=== PATIENT | male | born 1945 | race Caucasian/White ===

== ENCOUNTER 2021-09-06 10:03 | Outpatient (CLI) | payer MEDICARE ==
[~2021-09-06 10:03] MED LIST: Iopamidol 370 76% 100 ML VIAL ONE
[2021-09-06 10:21] LABS: Estimated GFR-MDRD - POC Greater than 90
== END 2021-09-06 10:04 | disposition home or self-care (01) ==
LOC: BICCT 10:03
PROVIDERS: ATTEND Radiology Radiation Oncology
DX: C61 Malignant neoplasm of prostate (principal); C79.51 Secondary malignant neoplasm of bone; R59.0 Localized enlarged lymph nodes; N20.2 Calculus of kidney with calculus of ureter; N32.89 Other specified disorders of bladder
CPT/HCPCS: 74177; 82565; Q9967

== ENCOUNTER 2021-11-02 13:35 | Outpatient (CLI) | payer MEDICARE | END 2021-11-02 13:36 | disposition home or self-care (01) | LOC: RAD 13:35 | PROVIDERS: ATTEND Urology | DX: N21.0 Calculus in bladder (principal); N20.0 Calculus of kidney; C61 Malignant neoplasm of prostate; C79.51 Secondary malignant neoplasm of bone | CPT/HCPCS: 74018; 80053; 84153 ==

== ENCOUNTER 2022-02-06 13:23 | Outpatient (CLI) | payer MEDICARE ==
[2022-02-06 15:00] LABS: Hemoglobin 13.6 g/dL (13.5-17.5); Mean Corpuscular HGB CONC 32.8 g/dL (32.0-36.0); Mean Corpuscular Hemoglobin 31.3 pg (27.0-33.0); Mean Corpuscular Volume 95.4 fl (81.2-95.1); Mean Platelet Volume 9.9 fl (7.4-10.4); Platelet Count 228 10x3/uL (150-450); RBC Distribution Width 14.5 % (11.5-14.5); Red Blood Cell (RBC) Count 4.35 10x6/uL (4.32-5.72); White Blood Cell (WBC) Count 6.8 10x3/uL (3.5-10.5)
[2022-02-06 15:10] LABS: Anion Gap 13 mmol/L (10-20); BUN (Urea Nitrogen) 21 mg/dL (8.4-25.7); Calc. Creatinine Clearance 0 mL/min (70-130); Carbon Dioxide 26 mmol/L (23-31); Chloride 106 mmol/L (98-107); Glucose 115 mg/dL (83-110); Potassium 3.8 mmol/L (3.5-5.1); Sodium 141 mmol/L (136-145)
[2022-02-06 23:02] LABS: SARS-CoV-2 PCR by NAA Not Detected (NotDetected)
== END 2022-02-06 13:24 | disposition home or self-care (01) ==
LOC: LABBT 13:23
PROVIDERS: ATTEND Urology
DX: Z01.818 Encounter for other preprocedural examination (principal); N32.0 Bladder-neck obstruction; N35.914 Unspecified anterior urethral stricture, male; Z20.822 Contact with and (suspected) exposure to COVID-19
CPT/HCPCS: 80048; 85027; 87077; 87086; 93005; U0003; U0005; 87186; 93010

== ENCOUNTER 2022-02-09 05:44 | Day surgery (SDC) | payer MEDICARE ==
[2022-02-07 13:44] VITALS: BMI 36.1
[2022-02-09] MEDS ORDERED: fentaNYL Citrate/PF 100 MCG/2 ML SYRINGE ONE (07:56)
[2022-02-09] MEDS ORDERED: Famotidine/PF 20 mg/2ml Vial ONE (07:56)
[2022-02-09] MEDS ORDERED: Ondansetron PF 4 MG/2 ML Vial ONE ×2 (07:56→08:08)
[2022-02-09] MEDS ORDERED: Levofloxacin 500 mg/D5W 100 ml Premix Bag ONE (08:01)
[2022-02-09] MEDS ORDERED: Lidocaine 1% PF 5 ML VIAL ONE (08:08)
[2022-02-09] MEDS ORDERED: PROPOFOL 200 MG/20 ML VIAL ONE (08:08)
[2022-02-09] MEDS ORDERED: Metoclopramide HCl 10 MG/2 ML VIAL ONE (08:08)
[2022-02-09] MEDS ORDERED: Ioversol 68 % 50 ML VIAL ONE (08:09)
[2022-02-09] MEDS ORDERED: Triamcinolone 40 MG/ML VIAL ONE (08:09)
[2022-02-09] MEDS ORDERED: Phenazopyridine HCl 100 MG TAB ONE (09:25)
[2022-02-09] MEDS ORDERED: Oxybutynin 5 MG TAB ONE (09:26)
[2022-02-09] MEDS ORDERED: Ketorolac Tromethamine 30 MG/ML VIAL ONE (09:26)
== END 2022-02-09 10:50 | disposition home or self-care (01) ==
LOC: SDC 05:44
PROVIDERS: ATTEND Urology
PROC: 0TND8ZZ Release Urethra, Via Natural or Artificial Opening Endoscopic (ICD-10-PCS; principal; 2022-02-09)
PROC: 0TBC8ZZ Excision of Bladder Neck, Via Natural or Artificial Opening Endoscopic (ICD-10-PCS; 2022-02-09)
PROC: 0T2BX0Z Change Drainage Device in Bladder, External Approach (ICD-10-PCS; 2022-02-09)
DX: N32.0 Bladder-neck obstruction (principal); N35.914 Unspecified anterior urethral stricture, male; I10 Essential (primary) hypertension; E78.5 Hyperlipidemia, unspecified; G47.30 Sleep apnea, unspecified; Q61.3 Polycystic kidney, unspecified; E78.00 Pure hypercholesterolemia, unspecified; E66.9 Obesity, unspecified; Z68.35 Body mass index [BMI] 35.0-35.9, adult; Z85.46 Personal history of malignant neoplasm of prostate; Z86.16 Personal history of COVID-19; Z87.891 Personal history of nicotine dependence; Z79.52 Long term (current) use of systemic steroids; Z79.899 Other long term (current) drug therapy
CPT/HCPCS: 74420; J1885; J1956; J2405; J2704; J2765; J3301; Q9967; S0028

== ENCOUNTER 2022-02-13 13:09 | Inpatient (IN) | payer MEDICARE ==
[2022-02-13] MEDS ORDERED: Ondansetron PF 4 MG/2 ML Vial ONE (13:23)
[2022-02-13 13:42] LABS: #Eosinphils 0.1 thou/uL (0.0-0.7); #Monocytes 0.6 thou/uL (0.11-0.59); #Neutrophils 7.6 thou/uL (1.40-6.50); %Basophils 0.4 % (0.0-1.0); %Lymphocytes 11.1 % (21.0-51.0); %Monocytes 6.2 % (0.0-10.0); %Neutrophils 81.4 % (42.0-75.0); Hemoglobin 14.8 g/dL (14.0-18.0); Mean Corpuscular HGB CONC 34.2 g/dL (32.0-36.0); Mean Corpuscular Hemoglobin 32.4 pg (27.0-31.0); Mean Corpuscular Volume 94.6 fL (78.0-98.0); Mean Platelet Volume 7.5 fL (7.4-10.4); Platelet Count 196 thou/uL (130-400); RBC Distribution Width 13.5 % (11.5-14.5); Red Blood Cell (RBC) Count 4.56 mill/uL (4.70-6.10); White Blood Cell (WBC) Count 9.3 thou/uL (4.8-10.8)
[2022-02-13] MEDS ORDERED: Cefepime 2 GM VIAL ONE (13:51)
[2022-02-13 14:07] LABS: ALT (SGPT) 13 U/L (8-55); AST (SGOT) 14 U/L (5-34); Albumin 3.7 g/dL (3.4-4.8); Alkaline Phosphatase 83 U/L (40-110); Anion Gap 14 mmol/L (10-20); BUN (Urea Nitrogen) 11 mg/dL (8.4-25.7); Bilirubin, Total 1.2 mg/dL (0.2-1.2); CK (CPK) 82 U/L (30-200); Calc. Creatinine Clearance 0 mL/min (70-130); Calcium 8.6 mg/dL (7.8-10.44); Carbon Dioxide 26 mmol/L (23-31); Chloride 98 mmol/L (98-107); Globulin 3.1 g/dL (2.4-3.5); Glucose 137 mg/dL (83-110); Magnesium 2.1 mg/dL (1.6-2.6); Protein, Total 6.8 g/dL (5.8-8.1); Sodium 135 mmol/L (136-145)
[2022-02-13 14:09] LABS: Potassium 2.6 mmol/L (3.5-5.1)
[2022-02-13] MEDS ORDERED: Magnesium 2 GM/50 ML BAG (IN WATER) ONE (14:36)
[2022-02-13] MEDS ORDERED: Vancomycin 1 GM in Premix Bag 1 BAG IVPB SCH (14:45)
[2022-02-13 15:09] LABS: Bacteria/HPF None Seen HPF (None Seen); Bilirubin Negative (Negative); Blood, Urine 1+ (Negative); Calcium Oxalate Crystals Rare HPF (None Seen); Clarity Clear (Clear); Glucose, Urine (Dipstick) Normal (Negative); Ketone, Urine Negative (Negative); Leukocyte 75 Leu/uL (Negative); Nitrite Negative (Negative); Protein, Urine (Dipstick) Negative (Neg-Trace); Specific Gravity, Urine 1.012 (1.002-1.036); Squamous Epithelial None Seen HPF (0-3); Urobilinogen Normal mg/dL (Less than 2)
[2022-02-13] MEDS ORDERED: Diltiazem HCl 125 MG, Admixture Fee 1 EACH in Sodium Chloride 0.9% 100 ML IVPB SCH (15:15)
[2022-02-13] MEDS ORDERED: Loperamide HCl 2 MG CAP PO PRN (16:37)
[2022-02-13] MEDS ORDERED: Calcium Carbonate 500 MG ChewTAB PO PRN (16:37)
[2022-02-13] MEDS ORDERED: Ondansetron PF 4 MG/2 ML Vial IVP PRN (16:37)
[2022-02-13] MEDS ORDERED: Senokot S 8.6-50 MG TAB PO PRN (16:37)
[2022-02-13] MEDS ORDERED: Acetaminophen 325 MG TAB PO PRN (16:37)
[2022-02-13] MEDS ORDERED: HYDROcodone/Acetaminophen 5/325 mg Tablet PO PRN (16:37)
[2022-02-13 17:01] LABS: Troponin I 0.021 ng/mL (< 0.028)
[2022-02-13] MEDS ORDERED: Potassium Chloride 20 MEQ TAB PO SCH (17:15)
[2022-02-13] MEDS: Potassium Chloride 20 MEQ in Premix Bag 1 BAG IVPB SCH ×2 (17:16→17:29)
[2022-02-13 17:26] VITALS: BMI 36.1
[2022-02-13] MEDS: Amiodarone 450 MG in Dextrose 5% in Water 250 ML IVPB SCH (17:29)
[2022-02-13] MEDS: Sodium Chloride 0.9% 1,000 ML IV SCH (17:29)
[2022-02-13] MEDS ORDERED: Vancomycin HCl 2.5 GM in Sodium Chloride 0.9% 500 ML IVPB SCH (18:00)
[2022-02-13] MEDS ORDERED: Digoxin 0.5 MG/2 ML AMP ONE (18:26)
[2022-02-13] MEDS ORDERED: Digoxin 0.5 MG/2 ML AMP SLOW IVP SCH (18:30)
[2022-02-13 20:17] LABS: Troponin I 0.031 ng/mL (< 0.028)
[2022-02-13 20:27] LABS: Anion Gap 11 mmol/L (10-20); BUN (Urea Nitrogen) 9 mg/dL (8.4-25.7); Calc. Creatinine Clearance 143 mL/min (70-130); Calcium 7.3 mg/dL (7.8-10.44); Carbon Dioxide 24 mmol/L (23-31); Chloride 104 mmol/L (98-107); Glucose 121 mg/dL (83-110); Potassium 2.7 mmol/L (3.5-5.1); Sodium 136 mmol/L (136-145)
[2022-02-13] MEDS: Enoxaparin Sodium 120 MG/0.8 ML SYRINGE SC SCH (20:55)
[2022-02-13] MEDS: Famotidine 20 MG TAB PO SCH (20:55)
[2022-02-13] MEDS: Cefepime 2 GM in Sodium Chloride 0.9% 100 ML IVPB SCH (20:56)
[2022-02-13] MEDS ORDERED: Electrolyte Replacement Protocol FS PRN (21:00)
[2022-02-13 23:33] LABS: SARS-CoV-2 NAA Rapid Test Not Detected (NotDetected)
[2022-02-14] MEDS: Amiodarone 450 MG in Dextrose 5% in Water 250 ML IVPB SCH (02:21)
[2022-02-14] MEDS ORDERED: Potassium Chloride 20 MEQ TAB PO SCH ×2 (02:30→09:30)
[2022-02-14 04:21] LABS: #Eosinphils 0.1 thou/uL (0.0-0.7); #Lymphocytes 1.1 thou/uL (1.20-3.40); #Monocytes 0.7 thou/uL (0.11-0.59); #Neutrophils 5.1 thou/uL (1.40-6.50); %Basophils 0.1 % (0.0-1.0); %Eosinophils 1.5 % (0.0-10.0); %Lymphocytes 15.4 % (21.0-51.0); %Monocytes 9.6 % (0.0-10.0); %Neutrophils 73.5 % (42.0-75.0); Hemoglobin 11.9 g/dL (14.0-18.0); Mean Corpuscular HGB CONC 33.4 g/dL (32.0-36.0); Mean Corpuscular Hemoglobin 32.8 pg (27.0-31.0); Mean Corpuscular Volume 98.2 fL (78.0-98.0); Mean Platelet Volume 7.4 fL (7.4-10.4); Platelet Count 164 thou/uL (130-400); RBC Distribution Width 13.6 % (11.5-14.5); Red Blood Cell (RBC) Count 3.63 mill/uL (4.70-6.10); White Blood Cell (WBC) Count 6.9 thou/uL (4.8-10.8)
[2022-02-14 04:31] LABS: Anion Gap 12 mmol/L (10-20); BUN (Urea Nitrogen) 9 mg/dL (8.4-25.7); Calc. Creatinine Clearance 143 mL/min (70-130); Calcium 6.8 mg/dL (7.8-10.44); Carbon Dioxide 20 mmol/L (23-31); Chloride 104 mmol/L (98-107); Glucose 109 mg/dL (83-110); Sodium 133 mmol/L (136-145)
[2022-02-14 04:38] LABS: Potassium 2.7 mmol/L (3.5-5.1)
[2022-02-14] MEDS: Sodium Chloride 0.9% 1,000 ML IV SCH ×3 (05:03→18:37)
[2022-02-14] MEDS: Cefepime 2 GM in Sodium Chloride 0.9% 100 ML IVPB SCH (05:04)
[2022-02-14] MEDS ORDERED: Potassium Chloride 20 MEQ in Premix Bag 1 BAG IVPB SCH (05:45)
[2022-02-14] MEDS ORDERED: Vancomycin HCl 1.75 GM in Sodium Chloride 0.9% 500 ML IVPB SCH (06:00)
[2022-02-14] MEDS: Potassium Chloride 20 MEQ TAB PO SCH ×2 (06:16→09:02)
[2022-02-14 08:11] LABS: Magnesium 2.2 mg/dL (1.6-2.6); Potassium 3.2 mmol/L (3.5-5.1)
[2022-02-14] MEDS: Famotidine 20 MG TAB PO SCH ×2 (09:02→21:40)
[2022-02-14] MEDS: Enoxaparin Sodium 120 MG/0.8 ML SYRINGE SC SCH ×2 (09:02→21:39)
[2022-02-14 14:45] LABS: Anion Gap 12 mmol/L (10-20); BUN (Urea Nitrogen) 11 mg/dL (8.4-25.7); Calc. Creatinine Clearance 132 mL/min (70-130); Calcium 7.1 mg/dL (7.8-10.44); Carbon Dioxide 20 mmol/L (23-31); Chloride 106 mmol/L (98-107); Glucose 157 mg/dL (83-110); Potassium 4.1 mmol/L (3.5-5.1); Sodium 134 mmol/L (136-145)
[2022-02-15] MEDS: Sodium Chloride 0.9% 1,000 ML IV SCH ×2 (01:54→11:12)
[2022-02-15 04:27] LABS: Anion Gap 13 mmol/L (10-20); BUN (Urea Nitrogen) 9 mg/dL (8.4-25.7); Calc. Creatinine Clearance 151 mL/min (70-130); Calcium 6.9 mg/dL (7.8-10.44); Carbon Dioxide 17 mmol/L (23-31); Chloride 108 mmol/L (98-107); Glucose 102 mg/dL (83-110); Potassium 3.6 mmol/L (3.5-5.1); Sodium 134 mmol/L (136-145)
[2022-02-15 04:48] LABS: #Eosinphils 0.2 thou/uL (0.0-0.7); #Lymphocytes 1.3 thou/uL (1.20-3.40); #Monocytes 0.5 thou/uL (0.11-0.59); #Neutrophils 5.6 thou/uL (1.40-6.50); %Basophils 0.1 % (0.0-1.0); %Eosinophils 2.7 % (0.0-10.0); %Lymphocytes 17.5 % (21.0-51.0); %Neutrophils 72.7 % (42.0-75.0); Hemoglobin 11.2 g/dL (14.0-18.0); Mean Corpuscular HGB CONC 33.2 g/dL (32.0-36.0); Mean Corpuscular Volume 96.3 fL (78.0-98.0); Mean Platelet Volume 8.7 fL (7.4-10.4); Platelet Count 140 thou/uL (130-400); RBC Distribution Width 13.6 % (11.5-14.5); RBC Morphology Normal; Red Blood Cell (RBC) Count 3.51 mill/uL (4.70-6.10); White Blood Cell (WBC) Count 7.7 thou/uL (4.8-10.8)
[2022-02-15] MEDS: Famotidine 20 MG TAB PO SCH ×2 (09:31→20:26)
[2022-02-15] MEDS: Enoxaparin Sodium 120 MG/0.8 ML SYRINGE SC SCH ×2 (09:31→20:26)
[2022-02-15] MEDS ORDERED: Furosemide 40 MG/4 ML VIAL SLOW IVP SCH (14:30)
[2022-02-16 04:06] LABS: #Eosinphils 0.1 thou/uL (0.0-0.7); #Lymphocytes 1.6 thou/uL (1.20-3.40); #Monocytes 0.5 thou/uL (0.11-0.59); %Basophils 0.2 % (0.0-1.0); %Eosinophils 1.5 % (0.0-10.0); %Lymphocytes 19.2 % (21.0-51.0); %Monocytes 5.7 % (0.0-10.0); %Neutrophils 73.4 % (42.0-75.0); Hemoglobin 11.8 g/dL (14.0-18.0); Mean Corpuscular HGB CONC 34.4 g/dL (32.0-36.0); Mean Corpuscular Hemoglobin 32.6 pg (27.0-31.0); Mean Corpuscular Volume 94.9 fL (78.0-98.0); Mean Platelet Volume 7.8 fL (7.4-10.4); Platelet Count 202 thou/uL (130-400); RBC Distribution Width 13.6 % (11.5-14.5); Red Blood Cell (RBC) Count 3.61 mill/uL (4.70-6.10); White Blood Cell (WBC) Count 8.2 thou/uL (4.8-10.8)
[2022-02-16 04:29] LABS: Anion Gap 13 mmol/L (10-20); BUN (Urea Nitrogen) 8 mg/dL (8.4-25.7); Calc. Creatinine Clearance 137 mL/min (70-130); Calcium 7.2 mg/dL (7.8-10.44); Carbon Dioxide 23 mmol/L (23-31); Chloride 105 mmol/L (98-107); Glucose 117 mg/dL (83-110); Sodium 138 mmol/L (136-145)
[2022-02-16 04:32] LABS: Potassium 2.7 mmol/L (3.5-5.1)
[2022-02-16] MEDS: Amiodarone 450 MG in Dextrose 5% in Water 250 ML IVPB SCH ×2 (05:25→21:59)
[2022-02-16] MEDS: Furosemide 20 MG/2 ML VIAL SLOW IVP SCH ×2 (05:29→13:56)
[2022-02-16] MEDS ORDERED: Potassium Chloride 40 MEQ in Sodium Chloride 0.9% 250 ML 250 ML IVPB SCH (06:45)
[2022-02-16] MEDS ORDERED: Potassium Chloride 20 MEQ TAB PO SCH ×2 (08:15→18:00)
[2022-02-16] MEDS ORDERED: Potassium Chloride 20 MEQ TAB ONE ×2 (08:39→08:40)
[2022-02-16] MEDS ORDERED: Glycopyrrolate 0.2 MG/ML 5 ML SYRINGE ONE ×2 (08:46→08:50)
[2022-02-16] MEDS ORDERED: Ketamine 50 MG/ML (10ML VIAL) ONE (08:46)
[2022-02-16] MEDS: Famotidine 20 MG TAB PO SCH ×2 (11:14→20:28)
[2022-02-16] MEDS: Enoxaparin Sodium 120 MG/0.8 ML SYRINGE SC SCH ×2 (11:14→20:28)
[2022-02-17] MEDS: Furosemide 20 MG/2 ML VIAL SLOW IVP SCH ×2 (05:09→14:30)
[2022-02-17 07:43] LABS: #Basophils 0.1 thou/uL (0.0-0.2); #Eosinphils 0.2 thou/uL (0.0-0.7); #Lymphocytes 1.6 thou/uL (1.20-3.40); #Monocytes 0.4 thou/uL (0.11-0.59); #Neutrophils 5.6 thou/uL (1.40-6.50); %Basophils 0.9 % (0.0-1.0); %Eosinophils 2.2 % (0.0-10.0); %Lymphocytes 20.4 % (21.0-51.0); %Monocytes 5.5 % (0.0-10.0); Hemoglobin 11.6 g/dL (14.0-18.0); Mean Corpuscular HGB CONC 33.2 g/dL (32.0-36.0); Mean Corpuscular Hemoglobin 32.1 pg (27.0-31.0); Mean Corpuscular Volume 96.8 fL (78.0-98.0); Mean Platelet Volume 7.6 fL (7.4-10.4); Platelet Count 235 thou/uL (130-400); RBC Distribution Width 13.8 % (11.5-14.5); Red Blood Cell (RBC) Count 3.61 mill/uL (4.70-6.10); White Blood Cell (WBC) Count 7.9 thou/uL (4.8-10.8)
[2022-02-17 08:03] LABS: Anion Gap 16 mmol/L (10-20); BUN (Urea Nitrogen) 8 mg/dL (8.4-25.7); Calc. Creatinine Clearance 128 mL/min (70-130); Calcium 7.2 mg/dL (7.8-10.44); Carbon Dioxide 24 mmol/L (23-31); Chloride 103 mmol/L (98-107); Glucose 119 mg/dL (83-110); Sodium 140 mmol/L (136-145)
[2022-02-17 08:07] LABS: Potassium 2.6 mmol/L (3.5-5.1)
[2022-02-17] MEDS: Enoxaparin Sodium 120 MG/0.8 ML SYRINGE SC SCH ×2 (09:55→22:01)
[2022-02-17] MEDS: Famotidine 20 MG TAB PO SCH ×2 (09:55→22:01)
[2022-02-17] MEDS: Potassium Chloride 20 MEQ TAB PO SCH ×3 (09:55→16:30)
[2022-02-17] MEDS: Amiodarone 450 MG in Dextrose 5% in Water 250 ML IVPB SCH (13:49)
[2022-02-17] MEDS ORDERED: Furosemide 40 MG/4 ML VIAL SLOW IVP SCH (14:30)
[2022-02-17] MEDS ORDERED: Hydrocortisone 1% Cream 30 GM TUBE TOP SCH (15:00)
[2022-02-17] MEDS: Hydrocortisone 1% Cream 30 GM TUBE TOP SCH (22:02)
[2022-02-17] MEDS: Rosuvastatin 10 MG TAB PO SCH (22:02)
[2022-02-18 05:16] LABS: Anion Gap 14 mmol/L (10-20); BUN (Urea Nitrogen) 8 mg/dL (8.4-25.7); Calc. Creatinine Clearance 129 mL/min (70-130); Calcium 7.3 mg/dL (7.8-10.44); Carbon Dioxide 25 mmol/L (23-31); Chloride 104 mmol/L (98-107); Glucose 122 mg/dL (83-110); Sodium 140 mmol/L (136-145)
[2022-02-18 05:23] LABS: Potassium 2.9 mmol/L (3.5-5.1)
[2022-02-18] MEDS: Furosemide 40 MG/4 ML VIAL SLOW IVP SCH ×2 (06:33→14:32)
[2022-02-18 08:41] LABS: Magnesium 1.9 mg/dL (1.6-2.6)
[2022-02-18] MEDS: Famotidine 20 MG TAB PO SCH ×2 (09:34→20:36)
[2022-02-18] MEDS: Potassium Chloride 20 MEQ TAB PO SCH ×3 (09:34→17:36)
[2022-02-18] MEDS: Enoxaparin Sodium 120 MG/0.8 ML SYRINGE SC SCH ×2 (09:34→20:36)
[2022-02-18] MEDS: predniSONE 5 MG TAB PO SCH (09:34)
[2022-02-18] MEDS: Hydrocortisone 1% Cream 30 GM TUBE TOP SCH ×2 (10:01→20:37)
[2022-02-18] MEDS ORDERED: Magnesium 2 GM/50 ML(in water) 2 GM in Premix Bag 1 BAG IVPB SCH (12:00)
[2022-02-18] MEDS ORDERED: Potassium Chloride 20 MEQ TAB PO SCH (12:00)
[2022-02-18] MEDS: Amiodarone 450 MG in Dextrose 5% in Water 250 ML IVPB SCH (20:36)
[2022-02-18] MEDS: Rosuvastatin 10 MG TAB PO SCH (20:36)
[2022-02-19 05:23] LABS: Anion Gap 14 mmol/L (10-20); BUN (Urea Nitrogen) 10 mg/dL (8.4-25.7); Calc. Creatinine Clearance 124 mL/min (70-130); Calcium 7.5 mg/dL (7.8-10.44); Carbon Dioxide 27 mmol/L (23-31); Chloride 102 mmol/L (98-107); Glucose 115 mg/dL (83-110); Magnesium 1.9 mg/dL (1.6-2.6); Sodium 140 mmol/L (136-145)
[2022-02-19] MEDS: Furosemide 40 MG/4 ML VIAL SLOW IVP SCH (05:45)
[2022-02-19] MEDS ORDERED: Magnesium 2 GM/50 ML(in water) 2 GM in Premix Bag 1 BAG IVPB SCH (06:30)
[2022-02-19] MEDS ORDERED: Potassium Chloride 20 MEQ TAB PO SCH ×2 (06:30→13:30)
[2022-02-19] MEDS: Famotidine 20 MG TAB PO SCH ×2 (09:09→21:02)
[2022-02-19] MEDS: Hydrocortisone 1% Cream 30 GM TUBE TOP SCH ×2 (09:09→21:03)
[2022-02-19] MEDS: Potassium Chloride 20 MEQ TAB PO SCH ×3 (09:09→16:58)
[2022-02-19] MEDS: Enoxaparin Sodium 120 MG/0.8 ML SYRINGE SC SCH (09:10)
[2022-02-19] MEDS: predniSONE 5 MG TAB PO SCH (09:10)
[2022-02-19] MEDS ORDERED: Amiodarone 200 MG TAB PO SCH ×2 (11:00→11:45)
[2022-02-19 12:17] LABS: Potassium 3.4 mmol/L (3.5-5.1)
[2022-02-19] MEDS: Apixaban 5 MG TAB PO SCH (21:02)
[2022-02-19] MEDS: Amiodarone 200 MG TAB PO SCH (21:02)
[2022-02-19] MEDS: Rosuvastatin 10 MG TAB PO SCH (21:02)
[2022-02-20 05:19] LABS: Anion Gap 15 mmol/L (10-20); BUN (Urea Nitrogen) 12 mg/dL (8.4-25.7); Calc. Creatinine Clearance 115 mL/min (70-130); Calcium 7.6 mg/dL (7.8-10.44); Carbon Dioxide 22 mmol/L (23-31); Chloride 107 mmol/L (98-107); Glucose 103 mg/dL (83-110); Magnesium 2.2 mg/dL (1.6-2.6); Sodium 140 mmol/L (136-145)
[2022-02-20] MEDS ORDERED: Furosemide 40 MG/4 ML VIAL SLOW IVP SCH (09:00)
[2022-02-20] MEDS: Famotidine 20 MG TAB PO SCH (09:12)
[2022-02-20] MEDS: predniSONE 5 MG TAB PO SCH (09:12)
[2022-02-20] MEDS: Potassium Chloride 20 MEQ TAB PO SCH ×2 (09:12→12:10)
[2022-02-20] MEDS: Amiodarone 200 MG TAB PO SCH (09:12)
[2022-02-20] MEDS: Apixaban 5 MG TAB PO SCH (09:12)
[2022-02-20] MEDS: Hydrocortisone 1% Cream 30 GM TUBE TOP SCH (09:13)
[2022-02-20 12:14] VITALS: BP 145/74; TEMP 98
== END 2022-02-20 13:25 | disposition home or self-care (01) | DRG 308 ==
LOC: ERS 13:09 → IMCU/EMU 15:45 → 2NO 02-15 22:16
PROVIDERS: ADMIT Family Medicine; ATTEND Family Medicine
PROC: 5A2204Z Restoration of Cardiac Rhythm, Single (ICD-10-PCS; principal; 2022-02-19)
PROC: B24BZZ4 Ultrasonography of Heart with Aorta, Transesophageal (ICD-10-PCS; 2022-02-19)
DX: I48.19 Other persistent atrial fibrillation (principal); I50.33 Acute on chronic diastolic (congestive) heart failure; J96.21 Acute and chronic respiratory failure with hypoxia; N39.0 Urinary tract infection, site not specified; I11.0 Hypertensive heart disease with heart failure; I48.4 Atypical atrial flutter; Z20.822 Contact with and (suspected) exposure to COVID-19; E66.9 Obesity, unspecified; N20.0 Calculus of kidney; E78.5 Hyperlipidemia, unspecified; G62.9 Polyneuropathy, unspecified; E87.6 Hypokalemia; G47.33 Obstructive sleep apnea (adult) (pediatric); Z79.52 Long term (current) use of systemic steroids; Z85.46 Personal history of malignant neoplasm of prostate; Z79.899 Other long term (current) drug therapy; Z99.89 Dependence on other enabling machines and devices; Z68.25 Body mass index [BMI] 25.0-25.9, adult
CPT/HCPCS: 36415; 71045; 80048; 80053; 81003; 81015; 82550; 83605; 83735; 83880; 84443; 84484; 85025; 87040; 87086; 92960; 93005; 93306; 93312; 94660; 96365; 96367; 96368; 96375; 96376; J0282; J0692; J1160; J1650; J1940; J2405; J3370; J3475; J3480; J3490; J7030; J7050; J7070; J7512; U0002

== ENCOUNTER 2022-08-28 08:02 | Outpatient (CLI) | payer MEDICARE | END 2022-08-28 08:03 | disposition home or self-care (01) | LOC: CT 08:02 | PROVIDERS: ATTEND Internal Medicine Hematology & Oncology | DX: C61 Malignant neoplasm of prostate (principal); C79.51 Secondary malignant neoplasm of bone; N12 Tubulo-interstitial nephritis, not specified as acute or chronic | CPT/HCPCS: 74177; 78306; 82565; A9503 ==

== ENCOUNTER 2022-11-16 10:00 | Outpatient (CLI) | payer MEDICARE ==
[2022-11-16 10:50] LABS: Hemoglobin 13.8 g/dL (13.5-17.5); Mean Corpuscular HGB CONC 32.9 g/dL (32.0-36.0); Mean Corpuscular Hemoglobin 30.3 pg (27.0-33.0); Mean Corpuscular Volume 92.3 fl (81.2-95.1); Mean Platelet Volume 9.2 fl (7.4-10.4); Platelet Count 239 10x3/uL (150-450); Red Blood Cell (RBC) Count 4.55 10x6/uL (4.32-5.72); White Blood Cell (WBC) Count 7.8 10x3/uL (3.5-10.5)
[2022-11-16 11:10] LABS: Anion Gap 13 mmol/L (10-20); BUN (Urea Nitrogen) 22 mg/dL (8.4-25.7); Calc. Creatinine Clearance 0 mL/min (70-130); Calcium 8.7 mg/dL (7.8-10.44); Carbon Dioxide 24 mmol/L (23-31); Chloride 108 mmol/L (98-107); Estimated GFR 83; Glucose 115 mg/dL (83-110); INR-International Normal Ratio 0.9; PTT 30.5 sec (22.0-33.0); Potassium 4.7 mmol/L (3.5-5.1); Prothrombin Time 10.2 sec (9.5-12.1); Sodium 140 mmol/L (136-145)
== END 2022-11-16 10:01 | disposition home or self-care (01) ==
LOC: LABBT 10:00
PROVIDERS: ATTEND Urology
DX: Z01.818 Encounter for other preprocedural examination (principal); Z43.5 Encounter for attention to cystostomy; C61 Malignant neoplasm of prostate; R31.0 Gross hematuria; N32.0 Bladder-neck obstruction; N99.114 Postprocedural urethral stricture, male, unspecified; R33.9 Retention of urine, unspecified; N47.1 Phimosis; N21.0 Calculus in bladder; N39.41 Urge incontinence; N39.3 Stress incontinence (female) (male); N20.0 Calculus of kidney; C79.82 Secondary malignant neoplasm of genital organs; I48.91 Unspecified atrial fibrillation; N28.1 Cyst of kidney, acquired; Z86.19 Personal history of other infectious and parasitic diseases; Z79.01 Long term (current) use of anticoagulants
CPT/HCPCS: 80048; 81001; 85027; 85610; 85730; 87077; 87086; 93005; 93010

== ENCOUNTER 2022-11-21 06:22 | Day surgery (SDC) | payer MEDICARE ==
[2022-11-20 09:26] VITALS: BMI 34.7
[2022-11-21] MEDS ORDERED: IOPAMIDOL ONE (06:41)
[2022-11-21] MEDS ORDERED: Iopamidol-M 300 61% 15 ML VIAL ONE (06:41)
[2022-11-21] MEDS ORDERED: Vancomycin 1 GM/200 ML (FROZEN) BAG ONE (07:35)
[2022-11-21] MEDS ORDERED: Fentanyl 100 MCG/2 ML VIAL ONE (08:33)
[2022-11-21] MEDS ORDERED: Ondansetron PF 4 MG/2 ML Vial ONE (08:41)
[2022-11-21] MEDS ORDERED: Glycopyrrolate 0.2 MG/ML 5 ML SYRINGE ONE (08:41)
[2022-11-21] MEDS ORDERED: Lidocaine 1% PF 5 ML VIAL ONE (08:41)
[2022-11-21] MEDS ORDERED: NEOSTIGMINE 3 MG/3 ML SYR 3 MG/3 ML SYRINGE ONE (08:41)
[2022-11-21] MEDS ORDERED: PROPOFOL 200 MG/20 ML VIAL ONE (08:41)
[2022-11-21] MEDS ORDERED: Rocuronium Bromide 10 MG/ML (10ML VIAL) ONE (08:41)
[2022-11-21] MEDS ORDERED: Cefepime 2 GM in Sodium Chloride 0.9% 100 ML IVPB SCH (08:45)
[2022-11-21] MEDS ORDERED: Phenazopyridine HCl 100 MG TAB ONE (10:18)
[2022-11-21] MEDS ORDERED: Oxybutynin 5 MG TAB ONE (10:18)
[2022-11-21] MEDS ORDERED: HYDROcodone/Acetaminophen 5/325 mg Tablet ONE (11:14)
== END 2022-11-21 12:08 | disposition home or self-care (01) ==
LOC: SDC 06:22
PROVIDERS: ATTEND Urology
PROC: 0TCB8ZZ Extirpation of Matter from Bladder, Via Natural or Artificial Opening Endoscopic (ICD-10-PCS; principal; 2022-11-21)
PROC: 0TPB80Z Removal of Drainage Device from Bladder, Via Natural or Artificial Opening Endoscopic (ICD-10-PCS; 2022-11-21)
PROC: 0T9B30Z Drainage of Bladder with Drainage Device, Percutaneous Approach (ICD-10-PCS; 2022-11-21)
DX: N21.0 Calculus in bladder (principal); N35.912 Unspecified bulbous urethral stricture, male; C61 Malignant neoplasm of prostate; C79.51 Secondary malignant neoplasm of bone; I11.0 Hypertensive heart disease with heart failure; I50.32 Chronic diastolic (congestive) heart failure; E78.00 Pure hypercholesterolemia, unspecified; I48.91 Unspecified atrial fibrillation; N32.89 Other specified disorders of bladder; N20.0 Calculus of kidney; N30.90 Cystitis, unspecified without hematuria; E66.01 Morbid (severe) obesity due to excess calories; Z68.34 Body mass index [BMI] 34.0-34.9, adult; Z87.891 Personal history of nicotine dependence; Z79.01 Long term (current) use of anticoagulants; Z79.52 Long term (current) use of systemic steroids; Z79.899 Other long term (current) drug therapy
CPT/HCPCS: 51710; 52317; 74420; 82365; J3370; 88300; C1769; J0692; J2405; J2704; J3010; J3490; Q9967

== ENCOUNTER 2022-12-17 11:45 | Outpatient (CLI) | payer MEDICARE ==
[2022-12-17 13:03] LABS: Hemoglobin 13.1 g/dL (13.5-17.5); Mean Platelet Volume 9.8 fl (7.4-10.4); Platelet Count 226 10x3/uL (150-450); RBC Distribution Width 15.3 % (11.5-14.5); Red Blood Cell (RBC) Count 4.36 10x6/uL (4.32-5.72); White Blood Cell (WBC) Count 8.9 10x3/uL (3.5-10.5)
[2022-12-17 13:08] LABS: INR-International Normal Ratio 0.9; PTT 29.9 sec (22.0-33.0); Prothrombin Time 10.2 sec (9.5-12.1)
[2022-12-17 13:10] LABS: Anion Gap 14 mmol/L (10-20); BUN (Urea Nitrogen) 20 mg/dL (8.4-25.7); Calc. Creatinine Clearance 0 mL/min (70-130); Calcium 8.8 mg/dL (7.8-10.44); Carbon Dioxide 23 mmol/L (23-31); Chloride 110 mmol/L (98-107); Estimated GFR 74; Glucose 105 mg/dL (83-110); Potassium 4.3 mmol/L (3.5-5.1); Sodium 143 mmol/L (136-145)
== END 2022-12-17 11:46 | disposition home or self-care (01) ==
LOC: LABBT 11:45
PROVIDERS: ATTEND Urology
DX: Z01.812 Encounter for preprocedural laboratory examination (principal)
CPT/HCPCS: 80048; 85027; 85610; 85730

== ENCOUNTER 2023-01-03 11:59 | Outpatient (CLI) | payer MEDICARE ==
[2023-01-03 12:43] LABS: Hemoglobin 13.4 g/dL (13.5-17.5); Mean Corpuscular Hemoglobin 30.2 pg (27.0-33.0); Mean Corpuscular Volume 94.6 fl (81.2-95.1); Mean Platelet Volume 9.1 fl (7.4-10.4); Platelet Count 297 10x3/uL (150-450); RBC Distribution Width 15.4 % (11.5-14.5); Red Blood Cell (RBC) Count 4.43 10x6/uL (4.32-5.72); White Blood Cell (WBC) Count 7.7 10x3/uL (3.5-10.5)
[2023-01-03 12:54] LABS: INR-International Normal Ratio 0.9; PTT 29.5 sec (22.0-33.0); Prothrombin Time 10.2 sec (9.5-12.1)
[2023-01-03 13:15] LABS: Anion Gap 15 mmol/L (10-20); BUN (Urea Nitrogen) 24 mg/dL (8.4-25.7); Calc. Creatinine Clearance 0 mL/min (70-130); Calcium 8.7 mg/dL (7.8-10.44); Carbon Dioxide 23 mmol/L (23-31); Chloride 109 mmol/L (98-107); Estimated GFR 85; Glucose 86 mg/dL (83-110); Potassium 3.8 mmol/L (3.5-5.1); Sodium 143 mmol/L (136-145)
== END 2023-01-03 12:00 | disposition home or self-care (01) ==
LOC: LABBT 11:59
PROVIDERS: ATTEND Urology
DX: Z01.818 Encounter for other preprocedural examination (principal); Z43.5 Encounter for attention to cystostomy; C61 Malignant neoplasm of prostate; N32.0 Bladder-neck obstruction; N99.114 Postprocedural urethral stricture, male, unspecified; R33.9 Retention of urine, unspecified; N47.1 Phimosis; N21.0 Calculus in bladder; N39.41 Urge incontinence; N39.3 Stress incontinence (female) (male); N20.0 Calculus of kidney; Z86.19 Personal history of other infectious and parasitic diseases; I48.91 Unspecified atrial fibrillation; N28.1 Cyst of kidney, acquired; Z87.898 Personal history of other specified conditions; Z79.01 Long term (current) use of anticoagulants
CPT/HCPCS: 80048; 85027; 85610; 85730; 93005; 93010

== ENCOUNTER 2023-01-09 08:24 | Day surgery (SDC) | payer MEDICARE ==
[2023-01-08 10:05] VITALS: BMI 34.9
[2023-01-09] MEDS ORDERED: Cefepime 2 GM in Sodium Chloride 0.9% 100 ML IVPB SCH (10:30)
[2023-01-09] MEDS ORDERED: Vancomycin 1 GM/200 ML (FROZEN) BAG ONE (10:59)
[2023-01-09] MEDS ORDERED: Iopamidol 15 ML ONE (12:45)
[2023-01-09] MEDS ORDERED: fentaNYL 50 mcg/mL 1 mL Vial ONE (12:51)
[2023-01-09] MEDS ORDERED: Famotidine/PF 20 mg/2ml Vial ONE (12:51)
[2023-01-09] MEDS ORDERED: PROPOFOL 200 MG/20 ML VIAL ONE (13:12)
[2023-01-09] MEDS ORDERED: Rocuronium Bromide 10 MG/ML (10ML VIAL) ONE (13:12)
[2023-01-09] MEDS ORDERED: Phenylephrine 10 MG/ML VIAL ONE (13:12)
[2023-01-09] MEDS ORDERED: Dexamethasone 20 MG/5 ML VIAL ONE (13:12)
[2023-01-09] MEDS ORDERED: ePHEDrine Sulfate 50 MG/10 ML VIAL ONE (13:12)
[2023-01-09] MEDS ORDERED: Lidocaine 1% PF 5 ML VIAL ONE (13:12)
[2023-01-09] MEDS ORDERED: NEOSTIGMINE 3 MG/3 ML SYR 3 MG/3 ML SYRINGE ONE (13:12)
[2023-01-09] MEDS ORDERED: Ondansetron PF 4 MG/2 ML Vial ONE (13:12)
[2023-01-09] MEDS ORDERED: Glycopyrrolate 0.2 MG/ML 5 ML SYRINGE ONE (13:12)
[2023-01-09] MEDS ORDERED: SUGAMMADEX SODIUM 200 MG/2 ML VIAL ONE (14:41)
[2023-01-09] MEDS ORDERED: Phenazopyridine HCl 100 MG TAB ONE (15:04)
[2023-01-09] MEDS ORDERED: Oxybutynin 5 MG TAB ONE (15:04)
== END 2023-01-09 15:51 | disposition home or self-care (01) ==
LOC: SDC 08:24
PROVIDERS: ATTEND Urology
PROC: 0T2BX0Z Change Drainage Device in Bladder, External Approach (ICD-10-PCS; principal; 2023-01-09)
PROC: 0TC08ZZ Extirpation of Matter from Right Kidney, Via Natural or Artificial Opening Endoscopic (ICD-10-PCS; 2023-01-09)
PROC: 0T768DZ Dilation of Right Ureter with Intraluminal Device, Via Natural or Artificial Opening Endoscopic (ICD-10-PCS; 2023-01-09)
PROC: 0TFD8ZZ Fragmentation in Urethra, Via Natural or Artificial Opening Endoscopic (ICD-10-PCS; 2023-01-09)
DX: N21.1 Calculus in urethra (principal); N20.0 Calculus of kidney; N21.0 Calculus in bladder; I11.0 Hypertensive heart disease with heart failure; E78.00 Pure hypercholesterolemia, unspecified; I50.32 Chronic diastolic (congestive) heart failure; I48.91 Unspecified atrial fibrillation; E66.01 Morbid (severe) obesity due to excess calories; Z68.35 Body mass index [BMI] 35.0-35.9, adult; Z87.891 Personal history of nicotine dependence; Z85.46 Personal history of malignant neoplasm of prostate; Z92.3 Personal history of irradiation; Z93.59 Other cystostomy status; Z79.01 Long term (current) use of anticoagulants; Z79.2 Long term (current) use of antibiotics; Z79.52 Long term (current) use of systemic steroids; Z79.899 Other long term (current) drug therapy
CPT/HCPCS: 51705; 52352; 52356; 74018; 74420 ×2; 82365; C1747; C1769; C2617; J3010; J3370; 88300; J0692; J1100; J2370; J2405; J2704; J3490; Q9967; S0028

== ENCOUNTER 2023-01-13 00:38 | Inpatient (IN) | payer MEDICARE ==
[2023-01-13 01:31] LABS: #Eosinphils 0.1 thou/uL (0.0-0.7); #Lymphocytes 0.8 thou/uL (1.20-3.40); #Monocytes 0.8 thou/uL (0.11-0.59); #Neutrophils 7.8 thou/uL (1.40-6.50); %Basophils 0.4 % (0.0-1.0); %Eosinophils 0.9 % (0.0-10.0); %Lymphocytes 8.2 % (21.0-51.0); %Monocytes 8.6 % (0.0-10.0); Hemoglobin 13.7 g/dL (14.0-18.0); Mean Corpuscular HGB CONC 33.5 g/dL (32.0-36.0); Mean Corpuscular Volume 95.3 fl (78.0-98.0); Mean Platelet Volume 7.4 fL (7.4-10.4); Platelet Count 212 10x3/uL (130-400); RBC Distribution Width 14.6 % (11.5-14.5); Red Blood Cell (RBC) Count 4.27 mill/uL (4.70-6.10); White Blood Cell (WBC) Count 9.5 10x3/uL (4.8-10.8)
[2023-01-13 01:51] LABS: ALT (SGPT) 8 U/L (8-55); AST (SGOT) 11 U/L (5-34); Albumin 3.7 g/dL (3.4-4.8); Alkaline Phosphatase 83 U/L (40-110); Anion Gap 13 mmol/L (10-20); BUN (Urea Nitrogen) 17 mg/dL (8.4-25.7); Calc. Creatinine Clearance 0 mL/min (70-130); Calcium 8.8 mg/dL (7.8-10.44); Carbon Dioxide 23 mmol/L (23-31); Chloride 103 mmol/L (98-107); Estimated GFR 81; Glucose 106 mg/dL (83-110); Potassium 3.4 mmol/L (3.5-5.1); Protein, Total 6.7 g/dL (5.8-8.1); Sodium 136 mmol/L (136-145)
[2023-01-13] MEDS ORDERED: Ketorolac Tromethamine 30 MG/ML VIAL ONE (02:16)
[2023-01-13] MEDS ORDERED: cefTRIAXone (ROCEPHIN) 1 GM VIAL ONE (02:16)
[2023-01-13] MEDS ORDERED: Vancomycin 1 GM/200 ML (FROZEN) BAG ONE (03:10)
[2023-01-13 03:23] LABS: Clarity Hazy (Clear)
[2023-01-13 03:24] LABS: Leukocyte Moderate (Negative); Nitrite Positive (Negative); pH, Urine 6.5 (5.0-9.0)
[2023-01-13 03:25] LABS: Glucose, Urine (Dipstick) Negative (Negative); Ketone, Urine Negative (Negative); Protein, Urine (Dipstick) 100 mg/dL (Neg-Trace)
[2023-01-13 03:26] LABS: Bilirubin Small (Negative); Blood, Urine Large (Negative); Urobilinogen Normal mg/dL (Less than 2)
[2023-01-13 03:27] LABS: Bacteria/HPF 4+ HPF (None Seen); WBC/HPF 21-50 HPF (0-3)
[2023-01-13] MEDS ORDERED: traMADol HCl 50 MG TAB PO PRN (05:04)
[2023-01-13] MEDS ORDERED: Senokot S 8.6-50 MG TAB PO PRN (05:14)
[2023-01-13] MEDS ORDERED: Ondansetron ODT 4 MG TAB PO PRN (05:14)
[2023-01-13 06:24] VITALS: BMI 35.0
[2023-01-13] MEDS ORDERED: Piperacillin/Tazobactam 3.375 GM in Sodium Chloride 0.9% 100 ML IVPB SCH (08:00)
[2023-01-13] MEDS: Famotidine 20 MG TAB PO SCH ×2 (08:10→21:24)
[2023-01-13] MEDS: predniSONE 5 MG TAB PO SCH (08:10)
[2023-01-13] MEDS: Famotidine/PF 20 mg/2ml Vial SLOW IVP SCH ×2 (08:11→21:25)
[2023-01-13] MEDS: Apixaban 5 MG TAB PO SCH ×2 (08:27→21:25)
[2023-01-13] MEDS ORDERED: Losartan 25 MG TAB PO SCH (09:00)
[2023-01-13] MEDS ORDERED: Piperacillin/Tazobactam 4.5 GM in Sodium Chloride 0.9% 100 ML IVPB SCH (09:00)
[2023-01-13] MEDS ORDERED: Rosuvastatin 10 MG TAB PO SCH (09:00)
[2023-01-13] MEDS: Piperacillin/Tazobactam 3.375 GM in Sodium Chloride 0.9% 100 ML IVPB SCH (16:58)
[2023-01-13] MEDS ORDERED: Amiodarone 200 MG TAB PO SCH (21:00)
[2023-01-13] MEDS: Rosuvastatin 10 MG TAB PO SCH (21:24)
[2023-01-13] MEDS: Losartan 25 MG TAB PO SCH (21:24)
[2023-01-14] MEDS: Piperacillin/Tazobactam 3.375 GM in Sodium Chloride 0.9% 100 ML IVPB SCH ×2 (00:35→09:39)
[2023-01-14 08:25] LABS: #Eosinphils 0.2 thou/uL (0.0-0.7); #Lymphocytes 1.1 thou/uL (1.20-3.40); #Monocytes 0.7 thou/uL (0.11-0.59); #Neutrophils 4.3 thou/uL (1.40-6.50); %Basophils 0.5 % (0.0-1.0); %Eosinophils 2.9 % (0.0-10.0); %Monocytes 11.1 % (0.0-10.0); %Neutrophils 68.6 % (42.0-75.0); Hemoglobin 11.4 g/dL (14.0-18.0); Mean Corpuscular HGB CONC 32.4 g/dL (32.0-36.0); Mean Corpuscular Hemoglobin 31.2 pg (27.0-31.0); Mean Corpuscular Volume 96.3 fl (78.0-98.0); Mean Platelet Volume 7.6 fL (7.4-10.4); Platelet Count 187 10x3/uL (130-400); RBC Distribution Width 14.4 % (11.5-14.5); Red Blood Cell (RBC) Count 3.65 mill/uL (4.70-6.10); White Blood Cell (WBC) Count 6.2 10x3/uL (4.8-10.8)
[2023-01-14 08:52] LABS: Anion Gap 13 mmol/L (10-20); BUN (Urea Nitrogen) 19 mg/dL (8.4-25.7); Calc. Creatinine Clearance 105 mL/min (70-130); Calcium 8.2 mg/dL (7.8-10.44); Carbon Dioxide 21 mmol/L (23-31); Chloride 110 mmol/L (98-107); Estimated GFR 81; Glucose 99 mg/dL (83-110); Potassium 3.6 mmol/L (3.5-5.1); Sodium 140 mmol/L (136-145)
[2023-01-14] MEDS: Famotidine/PF 20 mg/2ml Vial SLOW IVP SCH ×2 (09:20→21:34)
[2023-01-14] MEDS: Apixaban 5 MG TAB PO SCH ×2 (09:29→21:17)
[2023-01-14] MEDS: predniSONE 5 MG TAB PO SCH (09:39)
[2023-01-14] MEDS: Famotidine 20 MG TAB PO SCH ×2 (09:39→21:34)
[2023-01-14] MEDS ORDERED: Meropenem 500 MG in Sodium Chloride 0.9% 100 ML IVPB SCH (14:00)
[2023-01-14] MEDS ORDERED: Meropenem 1 GM in Sodium Chloride 0.9% 100 ML IVPB SCH (18:00)
[2023-01-14] MEDS: Cefepime 2 GM in Sodium Chloride 0.9% 100 ML IVPB SCH (21:33)
[2023-01-14] MEDS: Rosuvastatin 10 MG TAB PO SCH (21:35)
[2023-01-14] MEDS: Losartan 25 MG TAB PO SCH (21:35)
[2023-01-15] MEDS ORDERED: Meropenem 1 GM in Sodium Chloride 0.9% 100 ML IVPB SCH (02:00)
[2023-01-15] MEDS: Acetaminophen 325 MG TAB PO PRN (05:12)
[2023-01-15 07:16] LABS: #Eosinphils 0.2 thou/uL (0.0-0.7); #Lymphocytes 1.2 thou/uL (1.20-3.40); #Monocytes 0.6 thou/uL (0.11-0.59); %Basophils 0.7 % (0.0-1.0); %Eosinophils 3.6 % (0.0-10.0); %Lymphocytes 20.4 % (21.0-51.0); %Monocytes 9.6 % (0.0-10.0); %Neutrophils 65.6 % (42.0-75.0); Mean Corpuscular HGB CONC 31.9 g/dL (32.0-36.0); Mean Corpuscular Hemoglobin 31.1 pg (27.0-31.0); Mean Corpuscular Volume 97.4 fl (78.0-98.0); Mean Platelet Volume 7.9 fL (7.4-10.4); Platelet Count 202 10x3/uL (130-400); RBC Distribution Width 14.4 % (11.5-14.5); Red Blood Cell (RBC) Count 3.54 mill/uL (4.70-6.10)
[2023-01-15 07:30] LABS: Anion Gap 12 mmol/L (10-20); BUN (Urea Nitrogen) 19 mg/dL (8.4-25.7); CRP (Inflammatory) 2.22 mg/dL (= or < 0.5); Calc. Creatinine Clearance 112 mL/min (70-130); Calcium 8.5 mg/dL (7.8-10.44); Carbon Dioxide 23 mmol/L (23-31); Chloride 109 mmol/L (98-107); Estimated GFR 87; Glucose 99 mg/dL (83-110); Potassium 3.8 mmol/L (3.5-5.1); Sodium 140 mmol/L (136-145)
[2023-01-15] MEDS: Cefepime 2 GM in Sodium Chloride 0.9% 100 ML IVPB SCH ×2 (08:59→20:33)
[2023-01-15] MEDS: Famotidine 20 MG TAB PO SCH ×2 (08:59→20:34)
[2023-01-15] MEDS: Famotidine/PF 20 mg/2ml Vial SLOW IVP SCH ×2 (09:00→20:36)
[2023-01-15] MEDS: predniSONE 5 MG TAB PO SCH (09:00)
[2023-01-15] MEDS: Apixaban 5 MG TAB PO SCH (09:00)
[2023-01-15] MEDS: ABIRATERONE ACETATE 500 MG PO SCH ×2 (12:53→13:06)
[2023-01-15] MEDS: Losartan 25 MG TAB PO SCH (20:34)
[2023-01-15] MEDS: Rosuvastatin 10 MG TAB PO SCH (20:35)
[2023-01-16 05:39] LABS: #Eosinphils 0.2 thou/uL (0.0-0.7); #Lymphocytes 1.4 thou/uL (1.20-3.40); #Monocytes 0.5 thou/uL (0.11-0.59); #Neutrophils 3.7 thou/uL (1.40-6.50); %Basophils 0.1 % (0.0-1.0); %Eosinophils 3.3 % (0.0-10.0); %Lymphocytes 23.8 % (21.0-51.0); %Monocytes 8.7 % (0.0-10.0); %Neutrophils 64.1 % (42.0-75.0); Hemoglobin 10.8 g/dL (14.0-18.0); Mean Corpuscular HGB CONC 33.1 g/dL (32.0-36.0); Mean Corpuscular Hemoglobin 32.1 pg (27.0-31.0); Mean Corpuscular Volume 96.7 fl (78.0-98.0); Mean Platelet Volume 7.7 fL (7.4-10.4); Platelet Count 191 10x3/uL (130-400); RBC Distribution Width 14.2 % (11.5-14.5); Red Blood Cell (RBC) Count 3.37 mill/uL (4.70-6.10); White Blood Cell (WBC) Count 5.7 10x3/uL (4.8-10.8)
[2023-01-16 06:01] LABS: Anion Gap 12 mmol/L (10-20); BUN (Urea Nitrogen) 19 mg/dL (8.4-25.7); Calc. Creatinine Clearance 116 mL/min (70-130); Calcium 8.4 mg/dL (7.8-10.44); Carbon Dioxide 22 mmol/L (23-31); Chloride 110 mmol/L (98-107); Estimated GFR 88; Glucose 92 mg/dL (83-110); Potassium 3.7 mmol/L (3.5-5.1); Sodium 140 mmol/L (136-145)
[2023-01-16] MEDS: Famotidine 20 MG TAB PO SCH ×2 (08:05→20:53)
[2023-01-16] MEDS: predniSONE 5 MG TAB PO SCH (08:05)
[2023-01-16] MEDS: Cefepime 2 GM in Sodium Chloride 0.9% 100 ML IVPB SCH ×2 (08:05→20:55)
[2023-01-16] MEDS: Famotidine/PF 20 mg/2ml Vial SLOW IVP SCH ×2 (08:09→20:56)
[2023-01-16] MEDS: ABIRATERONE ACETATE 500 MG PO SCH (09:41)
[2023-01-16] MEDS ORDERED: Propofol 1,000 MG/100 ML VIAL IV ONE (14:06)
[2023-01-16] MEDS ORDERED: fentaNYL 50 mcg/mL 1 mL Vial ONE (14:06)
[2023-01-16] MEDS ORDERED: PROPOFOL 200 MG/20 ML VIAL ONE (14:14)
[2023-01-16] MEDS: Rosuvastatin 10 MG TAB PO SCH (20:54)
[2023-01-16] MEDS: Losartan 25 MG TAB PO SCH (20:54)
[2023-01-17] MEDS: Cefepime 2 GM in Sodium Chloride 0.9% 100 ML IVPB SCH (08:30)
[2023-01-17] MEDS: Famotidine 20 MG TAB PO SCH (08:31)
[2023-01-17] MEDS: predniSONE 5 MG TAB PO SCH (08:31)
[2023-01-17] MEDS: Famotidine/PF 20 mg/2ml Vial SLOW IVP SCH (08:36)
[2023-01-17] MEDS: ABIRATERONE ACETATE 500 MG PO SCH (09:45)
[2023-01-17] MEDS: Acetaminophen 325 MG TAB PO PRN (09:48)
[2023-01-17 11:43] VITALS: BP 133/61; TEMP 97.6
== END 2023-01-17 14:30 | disposition home or self-care (01) | DRG 698 ==
LOC: ERS 00:38 → T4-B 06:03
PROVIDERS: ADMIT Student in an Organized Health Care Education/Training Program; ATTEND Hospitalist
PROC: 3E03329 Introduction of Other Anti-infective into Peripheral Vein, Percutaneous Approach (ICD-10-PCS; principal; 2023-01-13)
PROC: 02HV33Z Insertion of Infusion Device into Superior Vena Cava, Percutaneous Approach (ICD-10-PCS; 2023-01-15)
PROC: B548ZZA Ultrasonography of Superior Vena Cava, Guidance (ICD-10-PCS; 2023-01-15)
PROC: 0TPD8DZ Removal of Intraluminal Device from Urethra, Via Natural or Artificial Opening Endoscopic (ICD-10-PCS; 2023-01-16)
DX: T83.511A Infection and inflammatory reaction due to indwelling urethral catheter, initial encounter (principal); A41.52 Sepsis due to Pseudomonas; I48.92 Unspecified atrial flutter; I50.32 Chronic diastolic (congestive) heart failure; N39.0 Urinary tract infection, site not specified; Y84.6 Urinary catheterization as the cause of abnormal reaction of the patient, or of later complication, without mention of misadventure at the time of the procedure; I11.0 Hypertensive heart disease with heart failure; E78.5 Hyperlipidemia, unspecified; R00.1 Bradycardia, unspecified; Z79.899 Other long term (current) drug therapy; Z79.01 Long term (current) use of anticoagulants; Z85.46 Personal history of malignant neoplasm of prostate
CPT/HCPCS: 36415; 36569; 74176; 80048; 80053; 81003; 81015; 83605; 85025; 86140; 87040; 87077; 87086; 87186; 96365; 96366; 96368; 96375; C1751; J0692; J0696; J1885; J2543; J2704; J3010; J3370-JW; J3490; J7512; S0028

== ENCOUNTER 2023-01-21 13:06 | Day surgery (SDC) | payer MEDICARE ==
[2023-01-21 13:52] LABS: #Eosinphils 0.1 thou/uL (0.0-0.7); #Monocytes 0.4 thou/uL (0.11-0.59); #Neutrophils 6.2 thou/uL (1.40-6.50); %Basophils 0.1 % (0.0-1.0); %Eosinophils 1.8 % (0.0-10.0); %Lymphocytes 13.1 % (21.0-51.0); %Monocytes 5.3 % (0.0-10.0); %Neutrophils 79.6 % (42.0-75.0); Hemoglobin 12.6 g/dL (14.0-18.0); Mean Corpuscular HGB CONC 34.2 g/dL (32.0-36.0); Mean Corpuscular Hemoglobin 32.6 pg (27.0-31.0); Mean Corpuscular Volume 95.3 fl (78.0-98.0); Mean Platelet Volume 7.9 fL (7.4-10.4); Platelet Count 235 10x3/uL (130-400); RBC Distribution Width 14.1 % (11.5-14.5); Red Blood Cell (RBC) Count 3.86 mill/uL (4.70-6.10); White Blood Cell (WBC) Count 7.7 10x3/uL (4.8-10.8)
[2023-01-21 14:13] LABS: Anion Gap 13 mmol/L (10-20); BUN (Urea Nitrogen) 24 mg/dL (8.4-25.7); Calc. Creatinine Clearance 0 mL/min (70-130); Calcium 9.5 mg/dL (7.8-10.44); Carbon Dioxide 25 mmol/L (23-31); Chloride 107 mmol/L (98-107); Estimated GFR 84; Glucose 109 mg/dL (83-110); Potassium 3.9 mmol/L (3.5-5.1); Sodium 141 mmol/L (136-145)
== END 2023-01-21 13:30 | disposition home or self-care (01) ==
LOC: ONC/OP 13:06
PROVIDERS: ATTEND Internal Medicine
DX: A41.9 Sepsis, unspecified organism (principal); N39.0 Urinary tract infection, site not specified
CPT/HCPCS: 36592; 80048; 85025; 96523

== ENCOUNTER 2023-01-28 12:41 | Day surgery (SDC) | payer MEDICARE ==
[2023-01-28 13:26] LABS: #Eosinphils 0.2 thou/uL (0.0-0.7); #Lymphocytes 1.1 thou/uL (1.20-3.40); #Monocytes 0.5 thou/uL (0.11-0.59); #Neutrophils 6.1 thou/uL (1.40-6.50); %Basophils 0.4 % (0.0-1.0); %Eosinophils 2.1 % (0.0-10.0); %Lymphocytes 13.6 % (21.0-51.0); %Neutrophils 77.9 % (42.0-75.0); Hemoglobin 13.2 g/dL (14.0-18.0); Mean Corpuscular HGB CONC 34.2 g/dL (32.0-36.0); Mean Corpuscular Hemoglobin 32.5 pg (27.0-31.0); Mean Platelet Volume 7.4 fL (7.4-10.4); Platelet Count 222 10x3/uL (130-400); RBC Distribution Width 14.3 % (11.5-14.5); Red Blood Cell (RBC) Count 4.06 mill/uL (4.70-6.10); White Blood Cell (WBC) Count 7.8 10x3/uL (4.8-10.8)
[2023-01-28 14:03] LABS: Anion Gap 15 mmol/L (10-20); BUN (Urea Nitrogen) 20 mg/dL (8.4-25.7); Calc. Creatinine Clearance 0 mL/min (70-130); Calcium 9.3 mg/dL (7.8-10.44); Carbon Dioxide 22 mmol/L (23-31); Chloride 108 mmol/L (98-107); Estimated GFR 83; Glucose 100 mg/dL (83-110); Potassium 3.7 mmol/L (3.5-5.1); Sodium 141 mmol/L (136-145)
== END 2023-01-28 13:26 | disposition home or self-care (01) ==
LOC: ONC/OP 12:41
PROVIDERS: ATTEND Internal Medicine
DX: A41.9 Sepsis, unspecified organism (principal); N39.0 Urinary tract infection, site not specified
CPT/HCPCS: 36592; 80048; 85025; J1642

== ENCOUNTER 2023-05-21 15:57 | Outpatient (CLI) | payer MEDICARE | END 2023-05-21 15:58 | disposition home or self-care (01) | LOC: ULT 15:57 | PROVIDERS: ATTEND Urology | DX: Z43.5 Encounter for attention to cystostomy (principal); C61 Malignant neoplasm of prostate; N32.0 Bladder-neck obstruction; N35.914 Unspecified anterior urethral stricture, male; N20.0 Calculus of kidney; C79.82 Secondary malignant neoplasm of genital organs; N28.1 Cyst of kidney, acquired; N39.41 Urge incontinence; Z87.898 Personal history of other specified conditions | CPT/HCPCS: 76770 ==

== ENCOUNTER 2023-09-13 14:33 | Outpatient (CLI) | payer MEDICARE | END 2023-09-13 14:34 | disposition home or self-care (01) | LOC: BICULT 14:33 | PROVIDERS: ATTEND Urology | DX: C61 Malignant neoplasm of prostate (principal); N32.0 Bladder-neck obstruction; N20.0 Calculus of kidney; N28.1 Cyst of kidney, acquired | CPT/HCPCS: 76770 ==

== ENCOUNTER 2023-09-21 16:12 | Inpatient (IN) | payer MEDICARE ==
[2023-09-21 17:43] LABS: #Eosinphils 0.3 thou/uL (0.0-0.7); #Monocytes 0.5 thou/uL (0.11-0.59); #Neutrophils 3.9 thou/uL (1.40-6.50); %Basophils 0.7 % (0.0-1.0); %Eosinophils 5.6 % (0.0-10.0); %Lymphocytes 17.9 % (21.0-51.0); %Monocytes 8.7 % (0.0-10.0); %Neutrophils 66.9 % (42.0-75.0); Hematocrit 42.9 % (42.0-52.0); Hemoglobin 14.1 g/dL (14.0-18.0); Mean Corpuscular HGB CONC 32.9 g/dL (32.0-36.0); Mean Corpuscular Volume 91.3 fl (78.0-98.0); Platelet Count 257 10x3/uL (130-400); RBC Distribution Width 14.6 % (11.5-14.5); White Blood Cell (WBC) Count 5.8 10x3/uL (4.8-10.8)
[2023-09-21 18:10] LABS: Troponin I Less than 0.010 ng/mL (< 0.028)
[2023-09-21 18:12] LABS: ALT (SGPT) 11 U/L (8-55); AST (SGOT) 14 U/L (5-34); Alkaline Phosphatase 78 U/L (40-110); Anion Gap 14 mmol/L (10-20); BUN (Urea Nitrogen) 10 mg/dL (8.4-25.7); Bilirubin, Total 0.5 mg/dL (0.2-1.2); CK (CPK) 45 U/L (30-200); Calc. Creatinine Clearance 0 mL/min (70-130); Calcium 9.2 mg/dL (7.8-10.44); Carbon Dioxide 24 mmol/L (23-31); Chloride 106 mmol/L (98-107); Estimated GFR 86; Globulin 3.1 g/dL (2.4-3.5); Glucose 101 mg/dL (83-110); Lipase 27 U/L (8-78); Potassium 3.8 mmol/L (3.5-5.1); Protein, Total 7.1 g/dL (5.8-8.1); Sodium 140 mmol/L (136-145)
[2023-09-21 18:37] LABS: SARS-CoV-2 NAA Rapid Test Not Detected (NotDetected)
[2023-09-21 19:51] LABS: Bacteria/HPF 2+ HPF (None Seen); Bilirubin Negative (Negative); Blood, Urine Negative (Negative); CAUTI Indications for Culture Pelvic or flank pain; Clarity Extra Turbid (Clear); Glucose, Urine (Dipstick) Normal (Negative); Ketone, Urine Negative (Negative); Leukocyte 500 Leu/uL (Negative); Nitrite Negative (Negative); Protein, Urine (Dipstick) 50 mg/dL (Neg-Trace); RBC/HPF 0-3 HPF (0-3); Specific Gravity, Urine 1.016 (1.002-1.036); Squamous Epithelial 0-3 HPF (0-3); Urobilinogen Normal mg/dL (Less than 2); WBC/HPF Greater than 50 HPF (0-3); pH, Urine 6.5 (5.0-9.0)
[2023-09-21 19:52] LABS: Urine Culture Reflex Yes Yes
[2023-09-21 19:53] LABS: Amphetamine Not Detected (NotDetected); Barbiturates Screen Not Detected (NotDetected); Benzodiazepine Screen Not Detected (NotDetected); Cocaine Metabolite Screen Not Detected (NotDetected); Methadone Not Detected (NotDetected); Methamphetamine Not Detected (NotDetected); Opiate Screen Not Detected (NotDetected); Oxycodone Screen Not Detected (NotDetected); Phencyclidine (PCP) Not Detected (NotDetected); THC/Cannabinoid Screen Not Detected (NotDetected); Tricyclic Screen Not Detected (NotDetected)
[2023-09-21] MEDS ORDERED: hydrALAZINE 20 MG/ML VIAL ONE (20:09)
[2023-09-21 21:26] LABS: Lactic Acid 1.3 mmol/L (0.5-2.2)
[2023-09-21 22:21] VITALS: BMI 34.4
[2023-09-21] MEDS ORDERED: Ondansetron ODT 4 MG TAB PO PRN (23:31)
[2023-09-21] MEDS ORDERED: Calcium Carbonate 500 MG ChewTAB PO PRN (23:31)
[2023-09-22] MEDS: cefTRIAXone\\ROCEPHIN 1 GM in Sodium Chloride 0.9% 100 ML IVPB SCH (01:05)
[2023-09-22] MEDS: Levothyroxine Sodium 100 MCG TAB PO SCH (06:24)
[2023-09-22 06:30] LABS: Anion Gap 11 mmol/L (10-20); BUN (Urea Nitrogen) 7 mg/dL (8.4-25.7); Calc. Creatinine Clearance 120 mL/min (70-130); Calcium 8.5 mg/dL (7.8-10.44); Carbon Dioxide 23 mmol/L (23-31); Chloride 112 mmol/L (98-107); Estimated GFR 90; Glucose 107 mg/dL (83-110); Potassium 3.6 mmol/L (3.5-5.1); Sodium 142 mmol/L (136-145)
[2023-09-22] MEDS ORDERED: FLU VACC QS2023(65UP)/MF59C/PF 60 MCG/0.5 ML SYRINGE IM ONE (09:00)
[2023-09-22] MEDS ORDERED: ENZALUTAMIDE 40 MG PO SCH (09:00)
[2023-09-22] MEDS ORDERED: T PO SCH (09:00)
[2023-09-22] MEDS: Dabigatran 150 mg Capsule PO SCH ×2 (10:19→20:42)
[2023-09-22] MEDS: Famotidine 20 MG TAB PO SCH ×2 (10:19→20:42)
[2023-09-22] MEDS: traMADol HCl 50 MG TAB PO PRN (10:35)
[2023-09-22] MEDS: Rosuvastatin 10 MG TAB PO SCH (20:42)
[2023-09-22] MEDS ORDERED: hydrALAZINE 20 MG/ML VIAL SLOW IVP SCH (21:15)
[2023-09-23] MEDS ORDERED: QUEtiapine 25 MG TAB PO SCH (00:30)
[2023-09-23] MEDS: cefTRIAXone\\ROCEPHIN 1 GM in Sodium Chloride 0.9% 100 ML IVPB SCH (00:31)
[2023-09-23 04:45] LABS: #Eosinphils 0.1 thou/uL (0.0-0.7); #Monocytes 0.5 thou/uL (0.11-0.59); #Neutrophils 5.4 thou/uL (1.40-6.50); %Basophils 0.5 % (0.0-1.0); %Eosinophils 1.9 % (0.0-10.0); %Lymphocytes 15.8 % (21.0-51.0); %Monocytes 7.3 % (0.0-10.0); %Neutrophils 74.2 % (42.0-75.0); Hematocrit 40.5 % (42.0-52.0); Hemoglobin 13.6 g/dL (14.0-18.0); Mean Corpuscular HGB CONC 33.6 g/dL (32.0-36.0); Mean Corpuscular Hemoglobin 29.8 pg (27.0-31.0); Mean Corpuscular Volume 88.8 fl (78.0-98.0); Mean Platelet Volume 9.9 fL (7.4-10.4); Platelet Count 242 10x3/uL (130-400); RBC Distribution Width 14.7 % (11.5-14.5); Red Blood Cell (RBC) Count 4.56 mill/uL (4.70-6.10); White Blood Cell (WBC) Count 7.3 10x3/uL (4.8-10.8)
[2023-09-23 05:10] LABS: Anion Gap 14 mmol/L (10-20); BUN (Urea Nitrogen) 9 mg/dL (8.4-25.7); Calc. Creatinine Clearance 117 mL/min (70-130); Carbon Dioxide 21 mmol/L (23-31); Chloride 109 mmol/L (98-107); Estimated GFR 89; Glucose 110 mg/dL (83-110); Potassium 3.3 mmol/L (3.5-5.1); Sodium 141 mmol/L (136-145)
[2023-09-23] MEDS: Levothyroxine Sodium 100 MCG TAB PO SCH (05:55)
[2023-09-23] MEDS ORDERED: Potassium Chloride 20 MEQ TAB PO SCH (08:00)
[2023-09-23] MEDS ORDERED: Losartan 25 MG TAB PO SCH (09:45)
[2023-09-23] MEDS ORDERED: Meropenem 1 GM in Sodium Chloride 0.9% 100 ML IVPB SCH (10:00)
[2023-09-23] MEDS: Dabigatran 150 mg Capsule PO SCH ×2 (10:26→21:13)
[2023-09-23] MEDS: Losartan 25 MG TAB PO SCH (10:27)
[2023-09-23] MEDS: Famotidine 20 MG TAB PO SCH ×2 (10:27→21:13)
[2023-09-23] MEDS: D5 0.9% NS w/ 20 mEq KCl 1,000 ML IV SCH (10:28)
[2023-09-23] MEDS: traMADol HCl 50 MG TAB PO PRN (18:04)
[2023-09-23] MEDS: Meropenem 1 GM in Sodium Chloride 0.9% 100 ML IVPB SCH (18:05)
[2023-09-23] MEDS: Rosuvastatin 10 MG TAB PO SCH (21:13)
[2023-09-24] MEDS: Meropenem 1 GM in Sodium Chloride 0.9% 100 ML IVPB SCH ×3 (02:03→17:37)
[2023-09-24] MEDS: Levothyroxine Sodium 100 MCG TAB PO SCH (05:30)
[2023-09-24] MEDS: D5 0.9% NS w/ 20 mEq KCl 1,000 ML IV SCH ×2 (05:33→17:36)
[2023-09-24 05:54] LABS: Free T4 (Free Thyroxine) 1.12 ng/dL (0.70-1.48)
[2023-09-24 06:14] LABS: Anion Gap 16 mmol/L (10-20); BUN (Urea Nitrogen) 9 mg/dL (8.4-25.7); Calc. Creatinine Clearance 108 mL/min (70-130); Carbon Dioxide 19 mmol/L (23-31); Chloride 109 mmol/L (98-107); Estimated GFR 87; Glucose 105 mg/dL (83-110); Potassium 3.8 mmol/L (3.5-5.1); Sodium 140 mmol/L (136-145)
[2023-09-24] MEDS: Dabigatran 150 mg Capsule PO SCH ×2 (09:31→20:55)
[2023-09-24] MEDS: Famotidine 20 MG TAB PO SCH ×2 (09:31→20:55)
[2023-09-24] MEDS: Losartan 25 MG TAB PO SCH (09:32)
[2023-09-24] MEDS: Rosuvastatin 10 MG TAB PO SCH (20:55)
[2023-09-25] MEDS: Meropenem 1 GM in Sodium Chloride 0.9% 100 ML IVPB SCH ×2 (03:45→09:04)
[2023-09-25] MEDS: D5 0.9% NS w/ 20 mEq KCl 1,000 ML IV SCH (05:00)
[2023-09-25] MEDS: Levothyroxine Sodium 100 MCG TAB PO SCH (05:00)
[2023-09-25] MEDS: Famotidine 20 MG TAB PO SCH ×2 (09:02→20:50)
[2023-09-25] MEDS: Dabigatran 150 mg Capsule PO SCH ×2 (09:03→20:51)
[2023-09-25] MEDS ORDERED: LevoFLOXacin 750 MG TAB PO SCH (09:37)
[2023-09-25] MEDS: Rosuvastatin 10 MG TAB PO SCH (20:50)
[2023-09-26] MEDS: Levothyroxine Sodium 100 MCG TAB PO SCH (05:32)
[2023-09-26] MEDS: LevoFLOXacin 750 MG TAB PO SCH (05:32)
[2023-09-26] MEDS: Losartan 25 MG TAB PO SCH ×2 (08:41→20:37)
[2023-09-26] MEDS: Dabigatran 150 mg Capsule PO SCH ×2 (08:42→20:37)
[2023-09-26] MEDS: Famotidine 20 MG TAB PO SCH ×2 (08:42→20:38)
[2023-09-26] MEDS ORDERED: Magnevist 469MG/ML 20 ML VIAL ONE (14:29)
[2023-09-26] MEDS ORDERED: hydrALAZINE 20 MG/ML VIAL SLOW IVP PRN (15:36)
[2023-09-26] MEDS: Rosuvastatin 10 MG TAB PO SCH (20:37)
[2023-09-27] MEDS: LevoFLOXacin 750 MG TAB PO SCH (06:09)
[2023-09-27] MEDS: Levothyroxine Sodium 100 MCG TAB PO SCH (06:09)
[2023-09-27] MEDS: Dabigatran 150 mg Capsule PO SCH ×2 (08:19→21:06)
[2023-09-27] MEDS: Losartan 25 MG TAB PO SCH ×2 (08:19→21:06)
[2023-09-27] MEDS: NIFEdipine XL 60 MG ER.TAB PO SCH (08:20)
[2023-09-27] MEDS: Famotidine 20 MG TAB PO SCH ×2 (08:20→21:06)
[2023-09-27] MEDS: Acetaminophen 325 MG TAB PO PRN (08:29)
[2023-09-27] MEDS: Rosuvastatin 10 MG TAB PO SCH (21:06)
[2023-09-28] MEDS: LevoFLOXacin 750 MG TAB PO SCH (06:17)
[2023-09-28] MEDS: Levothyroxine Sodium 100 MCG TAB PO SCH (06:19)
[2023-09-28] MEDS: Famotidine 20 MG TAB PO SCH ×2 (08:33→20:52)
[2023-09-28] MEDS: Losartan 25 MG TAB PO SCH ×2 (08:33→20:52)
[2023-09-28] MEDS: NIFEdipine XL 60 MG ER.TAB PO SCH (08:33)
[2023-09-28] MEDS: Dabigatran 150 mg Capsule PO SCH ×2 (08:33→20:51)
[2023-09-28] MEDS: traMADol HCl 50 MG TAB PO PRN ×2 (08:34→20:50)
[2023-09-28] MEDS: Rosuvastatin 10 MG TAB PO SCH (20:51)
[2023-09-29] MEDS: Levothyroxine Sodium 100 MCG TAB PO SCH (06:31)
[2023-09-29] MEDS: LevoFLOXacin 750 MG TAB PO SCH (06:31)
[2023-09-29 07:31] LABS: #Basophils 0.1 thou/uL (0.0-0.2); #Eosinphils 0.3 thou/uL (0.0-0.7); #Monocytes 0.6 thou/uL (0.11-0.59); #Neutrophils 5.5 thou/uL (1.40-6.50); %Basophils 0.6 % (0.0-1.0); %Eosinophils 3.2 % (0.0-10.0); %Lymphocytes 18.6 % (21.0-51.0); %Monocytes 7.8 % (0.0-10.0); %Neutrophils 69.5 % (42.0-75.0); Hematocrit 45.5 % (42.0-52.0); Mean Corpuscular Hemoglobin 29.9 pg (27.0-31.0); Mean Corpuscular Volume 90.6 fl (78.0-98.0); Mean Platelet Volume 9.7 fL (7.4-10.4); Platelet Count 292 10x3/uL (130-400); RBC Distribution Width 14.6 % (11.5-14.5); Red Blood Cell (RBC) Count 5.02 mill/uL (4.70-6.10); White Blood Cell (WBC) Count 7.8 10x3/uL (4.8-10.8)
[2023-09-29 07:52] LABS: ALT (SGPT) 9 U/L (8-55); AST (SGOT) 13 U/L (5-34); Albumin 3.8 g/dL (3.4-4.8); Alkaline Phosphatase 85 U/L (40-110); Anion Gap 13 mmol/L (10-20); BUN (Urea Nitrogen) 21 mg/dL (8.4-25.7); Bilirubin, Total 0.8 mg/dL (0.2-1.2); Calc. Creatinine Clearance 105 mL/min (70-130); Calcium 9.3 mg/dL (7.8-10.44); Carbon Dioxide 24 mmol/L (23-31); Chloride 104 mmol/L (98-107); Estimated GFR 84; Globulin 3.3 g/dL (2.4-3.5); Glucose 106 mg/dL (83-110); Potassium 3.6 mmol/L (3.5-5.1); Protein, Total 7.1 g/dL (5.8-8.1); Sodium 137 mmol/L (136-145)
[2023-09-29] MEDS: Dabigatran 150 mg Capsule PO SCH ×2 (08:29→20:27)
[2023-09-29] MEDS: NIFEdipine XL 60 MG ER.TAB PO SCH (08:29)
[2023-09-29] MEDS: Famotidine 20 MG TAB PO SCH ×2 (08:29→20:27)
[2023-09-29] MEDS: traMADol HCl 50 MG TAB PO PRN (08:30)
[2023-09-29] MEDS: Losartan 25 MG TAB PO SCH ×2 (08:30→20:27)
[2023-09-29] MEDS: Rosuvastatin 10 MG TAB PO SCH (20:27)
[2023-09-30] MEDS: Levothyroxine Sodium 100 MCG TAB PO SCH (05:41)
[2023-09-30] MEDS: Dabigatran 150 mg Capsule PO SCH ×2 (08:00→21:28)
[2023-09-30] MEDS: NIFEdipine XL 60 MG ER.TAB PO SCH (08:01)
[2023-09-30] MEDS: Losartan 25 MG TAB PO SCH ×2 (08:01→21:28)
[2023-09-30] MEDS: Famotidine 20 MG TAB PO SCH ×2 (08:01→21:28)
[2023-09-30] MEDS: Acetaminophen 325 MG TAB PO PRN (08:01)
[2023-09-30] MEDS: Rosuvastatin 10 MG TAB PO SCH (21:28)
[2023-10-01] MEDS: Levothyroxine Sodium 100 MCG TAB PO SCH (06:26)
[2023-10-01] MEDS ORDERED: Sterile Water 10 ML ONE ×3 (07:28→07:29)
[2023-10-01] MEDS: Dabigatran 150 mg Capsule PO SCH ×2 (09:08→21:20)
[2023-10-01] MEDS: NIFEdipine XL 60 MG ER.TAB PO SCH (09:08)
[2023-10-01] MEDS: Losartan 25 MG TAB PO SCH ×2 (09:10→21:20)
[2023-10-01] MEDS: Famotidine 20 MG TAB PO SCH ×2 (09:10→21:20)
[2023-10-01] MEDS: Rosuvastatin 10 MG TAB PO SCH (21:20)
[2023-10-02] MEDS: Levothyroxine Sodium 100 MCG TAB PO SCH (05:21)
[2023-10-02] MEDS: Dabigatran 150 mg Capsule PO SCH ×2 (08:58→22:02)
[2023-10-02] MEDS: NIFEdipine XL 60 MG ER.TAB PO SCH (08:58)
[2023-10-02] MEDS: Famotidine 20 MG TAB PO SCH ×2 (08:59→22:02)
[2023-10-02] MEDS: Losartan 25 MG TAB PO SCH ×2 (08:59→22:01)
[2023-10-02] MEDS: Rosuvastatin 10 MG TAB PO SCH (22:02)
[2023-10-03] MEDS: Levothyroxine Sodium 100 MCG TAB PO SCH (05:27)
[2023-10-03] MEDS: NIFEdipine XL 60 MG ER.TAB PO SCH (08:39)
[2023-10-03] MEDS: Losartan 25 MG TAB PO SCH ×2 (08:40→20:53)
[2023-10-03] MEDS: Dabigatran 150 mg Capsule PO SCH ×2 (08:40→20:53)
[2023-10-03] MEDS: Famotidine 20 MG TAB PO SCH ×2 (08:40→20:53)
[2023-10-03] MEDS: Rosuvastatin 10 MG TAB PO SCH (20:52)
[2023-10-04] MEDS: Levothyroxine Sodium 100 MCG TAB PO SCH (05:00)
[2023-10-04 08:39] VITALS: BP 146/74; TEMP 97.4
[2023-10-04] MEDS ORDERED: T PO SCH (09:00)
[2023-10-04] MEDS: Dabigatran 150 mg Capsule PO SCH (09:21)
[2023-10-04] MEDS: Losartan 25 MG TAB PO SCH (09:21)
[2023-10-04] MEDS: Famotidine 20 MG TAB PO SCH (09:21)
[2023-10-04] MEDS: NIFEdipine XL 60 MG ER.TAB PO SCH (09:21)
== END 2023-10-04 13:40 | DRG 698 ==
LOC: ERS 16:12 → MSONC 19:45 → OBSVTOIN 09-23 08:49
PROVIDERS: ADMIT Student in an Organized Health Care Education/Training Program; ATTEND Internal Medicine
DX: T83.510A Infection and inflammatory reaction due to cystostomy catheter, initial encounter (principal); G93.41 Metabolic encephalopathy; C79.51 Secondary malignant neoplasm of bone; N39.0 Urinary tract infection, site not specified; I50.32 Chronic diastolic (congestive) heart failure; I48.92 Unspecified atrial flutter; C61 Malignant neoplasm of prostate; I48.91 Unspecified atrial fibrillation; I11.0 Hypertensive heart disease with heart failure; E78.5 Hyperlipidemia, unspecified; R53.1 Weakness; E03.9 Hypothyroidism, unspecified; F03.90 Unspecified dementia, unspecified severity, without behavioral disturbance, psychotic disturbance, mood disturbance, and anxiety; N40.0 Benign prostatic hyperplasia without lower urinary tract symptoms; E78.00 Pure hypercholesterolemia, unspecified; E66.01 Morbid (severe) obesity due to excess calories; G47.33 Obstructive sleep apnea (adult) (pediatric); Z87.891 Personal history of nicotine dependence; Z79.899 Other long term (current) drug therapy; Z79.890 Hormone replacement therapy; Z90.49 Acquired absence of other specified parts of digestive tract; Z68.34 Body mass index [BMI] 34.0-34.9, adult; Z11.52 Encounter for screening for COVID-19
CPT/HCPCS: 36415; 70553; 71045; 80048; 80053; 80306; 81001; 82140; 82550; 82607; 83605; 83690; 84439; 84443; 84481; 84484; 85025; 87040; 87077; 87086; 87186; 93005; 96361; 96374; A9579; J0360; J0696; J2185; J3480; J3490

== ENCOUNTER 2023-11-05 09:42 | Inpatient (IN) | payer MEDICARE ==
[2023-11-05 10:15] LABS: #Eosinphils 0.1 thou/uL (0.0-0.7); #Monocytes 0.5 thou/uL (0.11-0.59); #Neutrophils 9.1 thou/uL (1.40-6.50); %Basophils 0.4 % (0.0-1.0); %Eosinophils 1.3 % (0.0-10.0); %Monocytes 5.1 % (0.0-10.0); %Neutrophils 85.3 % (42.0-75.0); Hematocrit 40.1 % (42.0-52.0); Hemoglobin 12.6 g/dL (14.0-18.0); Mean Corpuscular HGB CONC 31.4 g/dL (32.0-36.0); Mean Corpuscular Volume 92.4 fl (78.0-98.0); Mean Platelet Volume 9.7 fL (7.4-10.4); Platelet Count 316 10x3/uL (130-400); RBC Distribution Width 14.8 % (11.5-14.5); Red Blood Cell (RBC) Count 4.34 mill/uL (4.70-6.10); White Blood Cell (WBC) Count 10.7 10x3/uL (4.8-10.8)
[2023-11-05 10:39] LABS: Bilirubin Negative (Negative); Blood, Urine Large (Negative); Glucose, Urine (Dipstick) Negative (Negative); Ketone, Urine Negative (Negative); Leukocyte Small (Negative); Nitrite Positive (Negative); Protein, Urine (Dipstick) 100 mg/dL (Neg-Trace); Urobilinogen 0.2 mg/dL (Less than 2); pH, Urine 6.5 (5.0-9.0)
[2023-11-05 10:41] LABS: Clarity Mucous (Clear)
[2023-11-05 10:44] LABS: Troponin I Less than 0.010 ng/mL (< 0.028)
[2023-11-05 10:47] LABS: ALT (SGPT) Less than 7 U/L (8-55); AST (SGOT) 11 U/L (5-34); Albumin 3.5 g/dL (3.4-4.8); Alkaline Phosphatase 87 U/L (40-110); Anion Gap 13 mmol/L (10-20); BUN (Urea Nitrogen) 14 mg/dL (8.4-25.7); Bilirubin, Total 0.4 mg/dL (0.2-1.2); Calc. Creatinine Clearance 0 mL/min (70-130); Calcium 9.4 mg/dL (7.8-10.44); Carbon Dioxide 23 mmol/L (23-31); Chloride 106 mmol/L (98-107); Estimated GFR 62; Globulin 3.3 g/dL (2.4-3.5); Glucose 138 mg/dL (83-110); Lipase 26 U/L (8-78); Protein, Total 6.8 g/dL (5.8-8.1); Sodium 138 mmol/L (136-145)
[2023-11-05 11:11] LABS: SARS-CoV-2 NAA Rapid Test DETECTED (NotDetected)
[2023-11-05] MEDS ORDERED: Vancomycin 1 GM/200 ML (FROZEN) BAG ONE (11:23)
[2023-11-05] MEDS ORDERED: cefTRIAXone (ROCEPHIN) 2 GM VIAL ONE (11:23)
[2023-11-05] MEDS ORDERED: Sodium Chloride 0.9% 100 ML ONE (11:23)
[2023-11-05] MEDS ORDERED: Ondansetron PF 4 MG/2 ML Vial IVP PRN (11:44)
[2023-11-05] MEDS ORDERED: Calcium Carbonate 500 MG ChewTAB PO PRN (11:44)
[2023-11-05] MEDS ORDERED: Senokot S 8.6-50 MG TAB PO PRN (11:44)
[2023-11-05] MEDS ORDERED: Acetaminophen 325 MG TAB PO PRN (11:44)
[2023-11-05] MEDS ORDERED: traMADol HCl 50 MG TAB PO PRN (11:50)
[2023-11-05 13:49] LABS: Lactic Acid 1.6 mmol/L (0.5-2.2)
[2023-11-05 15:02] LABS: CAUTI Indications for Culture Dysuria,urgency,freq
[2023-11-05] MEDS: Sodium Chloride 0.9% 1,000 ML IV SCH ×2 (15:25→21:05)
[2023-11-05] MEDS: Rosuvastatin 10 MG TAB PO SCH (21:03)
[2023-11-05] MEDS: Cefepime 1 GM in Sodium Chloride 0.9% 100 ML IVPB SCH (21:03)
[2023-11-05] MEDS: Dabigatran 150 mg Capsule PO SCH (21:04)
[2023-11-06 04:28] LABS: #Eosinphils 0.2 thou/uL (0.0-0.7); #Monocytes 0.5 thou/uL (0.11-0.59); #Neutrophils 4.3 thou/uL (1.40-6.50); %Basophils 0.5 % (0.0-1.0); %Eosinophils 2.6 % (0.0-10.0); %Monocytes 7.4 % (0.0-10.0); Hematocrit 33.9 % (42.0-52.0); Hemoglobin 10.8 g/dL (14.0-18.0); Mean Corpuscular HGB CONC 31.9 g/dL (32.0-36.0); Mean Corpuscular Volume 90.9 fl (78.0-98.0); Mean Platelet Volume 9.9 fL (7.4-10.4); Platelet Count 275 10x3/uL (130-400); RBC Distribution Width 14.8 % (11.5-14.5); Red Blood Cell (RBC) Count 3.73 mill/uL (4.70-6.10); White Blood Cell (WBC) Count 6.1 10x3/uL (4.8-10.8)
[2023-11-06 04:53] LABS: ALT (SGPT) Less than 7 U/L (8-55); AST (SGOT) 13 U/L (5-34); Albumin 2.8 g/dL (3.4-4.8); Alkaline Phosphatase 77 U/L (40-110); Anion Gap 12 mmol/L (10-20); BUN (Urea Nitrogen) 14 mg/dL (8.4-25.7); Bilirubin, Total 0.3 mg/dL (0.2-1.2); Calc. Creatinine Clearance 99 mL/min (70-130); Calcium 8.6 mg/dL (7.8-10.44); Carbon Dioxide 22 mmol/L (23-31); Chloride 109 mmol/L (98-107); Estimated GFR 86; Globulin 3.1 g/dL (2.4-3.5); Glucose 108 mg/dL (83-110); Potassium 3.7 mmol/L (3.5-5.1); Protein, Total 5.9 g/dL (5.8-8.1); Sodium 139 mmol/L (136-145)
[2023-11-06] MEDS: Sodium Chloride 0.9% 1,000 ML IV SCH (07:40)
[2023-11-06 08:30] VITALS: BMI 31.1
[2023-11-06] MEDS ORDERED: NIFEdipine XL 60 MG ER.TAB PO SCH (09:00)
[2023-11-06] MEDS ORDERED: ENZALUTAMIDE 40 MG PO SCH ×2 (09:00)
[2023-11-06] MEDS ORDERED: Non-Formulary Item 1 EACH (Losartan Potassium [Losartan Potassium] 100 MG Tablet) PO SCH (09:00)
[2023-11-06] MEDS ORDERED: Losartan 25 MG TAB PO SCH (09:15)
[2023-11-06] MEDS: Cefepime 1 GM in Sodium Chloride 0.9% 100 ML IVPB SCH (09:37)
[2023-11-06] MEDS: Levothyroxine Sodium 100 MCG TAB PO SCH (09:37)
[2023-11-06] MEDS: Dabigatran 150 mg Capsule PO SCH ×2 (09:37→21:26)
[2023-11-06] MEDS: Lactated Ringer's 1,000 ML IV SCH (12:37)
[2023-11-06] MEDS: Cefepime 2 GM in Sodium Chloride 0.9% 100 ML IVPB SCH (21:25)
[2023-11-06] MEDS: Rosuvastatin 10 MG TAB PO SCH (21:26)
[2023-11-07] MEDS: Lactated Ringer's 1,000 ML IV SCH (05:01)
[2023-11-07 05:47] LABS: #Eosinphils 0.2 thou/uL (0.0-0.7); #Monocytes 0.5 thou/uL (0.11-0.59); #Neutrophils 5.1 thou/uL (1.40-6.50); %Basophils 0.6 % (0.0-1.0); %Eosinophils 2.4 % (0.0-10.0); %Lymphocytes 16.3 % (21.0-51.0); %Monocytes 6.7 % (0.0-10.0); %Neutrophils 73.6 % (42.0-75.0); Hematocrit 33.4 % (42.0-52.0); Mean Corpuscular HGB CONC 32.9 g/dL (32.0-36.0); Mean Corpuscular Hemoglobin 29.2 pg (27.0-31.0); Mean Corpuscular Volume 88.6 fl (78.0-98.0); Mean Platelet Volume 9.7 fL (7.4-10.4); Platelet Count 269 10x3/uL (130-400); RBC Distribution Width 14.8 % (11.5-14.5); Red Blood Cell (RBC) Count 3.77 mill/uL (4.70-6.10)
[2023-11-07 06:14] LABS: Anion Gap 13 mmol/L (10-20); BUN (Urea Nitrogen) 13 mg/dL (8.4-25.7); Calc. Creatinine Clearance 99 mL/min (70-130); Calcium 8.6 mg/dL (7.8-10.44); Carbon Dioxide 20 mmol/L (23-31); Chloride 109 mmol/L (98-107); Estimated GFR 87; Glucose 96 mg/dL (83-110); Magnesium 1.9 mg/dL (1.6-2.6); Potassium 3.4 mmol/L (3.5-5.1); Sodium 139 mmol/L (136-145)
[2023-11-07] MEDS ORDERED: Potassium Bicarbonate/Cit Ac 20 MEQ TAB PO SCH (08:00)
[2023-11-07] MEDS: Dabigatran 150 mg Capsule PO SCH ×2 (09:13→21:39)
[2023-11-07] MEDS: Losartan 25 MG TAB PO SCH (09:13)
[2023-11-07] MEDS: Levothyroxine Sodium 100 MCG TAB PO SCH (09:13)
[2023-11-07] MEDS: Cefepime 2 GM in Sodium Chloride 0.9% 100 ML IVPB SCH ×2 (09:13→21:38)
[2023-11-07] MEDS: Rosuvastatin 10 MG TAB PO SCH (21:39)
[2023-11-08] MEDS ORDERED: hydrALAZINE 25 MG TAB PO SCH (04:15)
[2023-11-08 04:58] LABS: #Eosinphils 0.1 thou/uL (0.0-0.7); #Monocytes 0.5 thou/uL (0.11-0.59); #Neutrophils 5.5 thou/uL (1.40-6.50); %Basophils 0.4 % (0.0-1.0); %Eosinophils 1.9 % (0.0-10.0); %Lymphocytes 15.3 % (21.0-51.0); %Monocytes 6.8 % (0.0-10.0); %Neutrophils 75.2 % (42.0-75.0); Hematocrit 34.7 % (42.0-52.0); Hemoglobin 11.3 g/dL (14.0-18.0); Mean Corpuscular HGB CONC 32.6 g/dL (32.0-36.0); Mean Corpuscular Hemoglobin 28.7 pg (27.0-31.0); Mean Corpuscular Volume 88.1 fl (78.0-98.0); Mean Platelet Volume 9.9 fL (7.4-10.4); Platelet Count 280 10x3/uL (130-400); RBC Distribution Width 14.8 % (11.5-14.5); Red Blood Cell (RBC) Count 3.94 mill/uL (4.70-6.10); White Blood Cell (WBC) Count 7.3 10x3/uL (4.8-10.8)
[2023-11-08 05:26] LABS: Anion Gap 15 mmol/L (10-20); BUN (Urea Nitrogen) 17 mg/dL (8.4-25.7); Calc. Creatinine Clearance 107 mL/min (70-130); Calcium 9.1 mg/dL (7.8-10.44); Carbon Dioxide 24 mmol/L (23-31); Chloride 104 mmol/L (98-107); Estimated GFR 89; Glucose 93 mg/dL (83-110); Potassium 3.5 mmol/L (3.5-5.1); Sodium 139 mmol/L (136-145)
[2023-11-08 05:38] LABS: Free T4 (Free Thyroxine) 1.11 ng/dL (0.70-1.48); Thyroid Stimulating Hormone 3.2415 uIU/mL (0.35-4.94)
[2023-11-08] MEDS: Dabigatran 150 mg Capsule PO SCH ×2 (08:45→21:34)
[2023-11-08] MEDS: Levothyroxine Sodium 100 MCG TAB PO SCH (08:45)
[2023-11-08] MEDS: Losartan 25 MG TAB PO SCH (08:45)
[2023-11-08] MEDS: Cefepime 2 GM in Sodium Chloride 0.9% 100 ML IVPB SCH ×2 (08:45→21:34)
[2023-11-08] MEDS ORDERED: FLU VACC QS2023(65UP)/MF59C/PF 60 MCG/0.5 ML SYRINGE IM ONE (18:00)
[2023-11-08] MEDS: Rosuvastatin 10 MG TAB PO SCH (21:34)
[2023-11-09 04:53] LABS: #Eosinphils 0.2 thou/uL (0.0-0.7); #Monocytes 0.6 thou/uL (0.11-0.59); #Neutrophils 5.5 thou/uL (1.40-6.50); %Basophils 0.5 % (0.0-1.0); %Eosinophils 2.6 % (0.0-10.0); %Lymphocytes 16.7 % (21.0-51.0); %Monocytes 7.5 % (0.0-10.0); %Neutrophils 72.3 % (42.0-75.0); Hematocrit 35.1 % (42.0-52.0); Hemoglobin 11.3 g/dL (14.0-18.0); Mean Corpuscular HGB CONC 32.2 g/dL (32.0-36.0); Mean Corpuscular Hemoglobin 28.9 pg (27.0-31.0); Mean Corpuscular Volume 89.8 fl (78.0-98.0); Mean Platelet Volume 10.2 fL (7.4-10.4); Platelet Count 284 10x3/uL (130-400); RBC Distribution Width 15.2 % (11.5-14.5); Red Blood Cell (RBC) Count 3.91 mill/uL (4.70-6.10); White Blood Cell (WBC) Count 7.6 10x3/uL (4.8-10.8)
[2023-11-09 05:18] LABS: Anion Gap 14 mmol/L (10-20); BUN (Urea Nitrogen) 21 mg/dL (8.4-25.7); Calc. Creatinine Clearance 94 mL/min (70-130); Calcium 9.2 mg/dL (7.8-10.44); Carbon Dioxide 25 mmol/L (23-31); Chloride 102 mmol/L (98-107); Estimated GFR 82; Glucose 95 mg/dL (83-110); Potassium 4.1 mmol/L (3.5-5.1); Sodium 137 mmol/L (136-145)
[2023-11-09] MEDS ORDERED: Amoxicillin/Potassium Clav 875 MG TAB PO SCH (09:00)
[2023-11-09] MEDS: Losartan 25 MG TAB PO SCH (10:08)
[2023-11-09] MEDS: Levothyroxine Sodium 100 MCG TAB PO SCH (10:09)
[2023-11-09] MEDS: Dabigatran 150 mg Capsule PO SCH (10:09)
[2023-11-09 15:51] VITALS: BP 157/67; TEMP 98
[2023-11-09 17:38] LABS: % Free PSA 24.5 % (.); Total PSA 3.1 ng/mL (0.0-4.0)
== END 2023-11-09 18:19 | disposition home or self-care (01) | DRG 178 ==
LOC: ERS 09:42 → SUATTDRO 09:42 → ERHOLD 11:43 → 2NO 17:24
PROVIDERS: ADMIT Internal Medicine; ATTEND Hospitalist
DX: U07.1 COVID-19 (principal); E44.0 Moderate protein-calorie malnutrition; I50.32 Chronic diastolic (congestive) heart failure; N39.0 Urinary tract infection, site not specified; T83.510A Infection and inflammatory reaction due to cystostomy catheter, initial encounter; Z90.49 Acquired absence of other specified parts of digestive tract; Z98.890 Other specified postprocedural states; Z87.891 Personal history of nicotine dependence; E78.5 Hyperlipidemia, unspecified; I48.91 Unspecified atrial fibrillation; I11.0 Hypertensive heart disease with heart failure; Z79.899 Other long term (current) drug therapy; I95.9 Hypotension, unspecified; E03.9 Hypothyroidism, unspecified; C61 Malignant neoplasm of prostate; D64.9 Anemia, unspecified; E86.0 Dehydration
CPT/HCPCS: 36415; 36416; 71045; 80048; 80053; 81001; 81003; 83605; 83690; 83735; 83880; 84153; 84154; 84439; 84443; 84484; 85025; 87040; 87077; 87086; 87186; 93005; J0692; J0696; J3370-JW; J3490; J7050; J7120

== ENCOUNTER 2024-01-02 13:34 | Outpatient (CLI) | payer MEDICARE | END 2024-01-02 13:35 | disposition home or self-care (01) | LOC: CT 13:34 | PROVIDERS: ATTEND Urology | DX: N13.2 Hydronephrosis with renal and ureteral calculous obstruction (principal); C61 Malignant neoplasm of prostate | CPT/HCPCS: 74176 ==

== ENCOUNTER 2024-02-27 10:58 | Outpatient (CLI) | payer MEDICARE | END 2024-02-27 10:59 | disposition home or self-care (01) | LOC: BICULT 10:58 | PROVIDERS: ATTEND Urology | DX: Z43.5 Encounter for attention to cystostomy (principal); N28.1 Cyst of kidney, acquired; N21.0 Calculus in bladder; N32.0 Bladder-neck obstruction; C61 Malignant neoplasm of prostate; N30.40 Irradiation cystitis without hematuria; N13.30 Unspecified hydronephrosis; Z87.442 Personal history of urinary calculi; Z98.890 Other specified postprocedural states | CPT/HCPCS: 74018; 76770 ==

== ENCOUNTER 2024-09-02 08:36 | Emergency (ER) | payer MEDICARE | END 2024-09-02 10:37 | disposition home or self-care (01) | LOC: ERS 08:36 | DX: R60.0 Localized edema (principal); I10 Essential (primary) hypertension; Z79.899 Other long term (current) drug therapy ==

== ENCOUNTER 2025-06-11 10:52 | Inpatient (IN) | payer MEDICARE ==
[2025-06-11 11:45] LABS: #Basophils 0.08 10x3/uL (0.0-0.2); #Eosinophils 0.28 10x3/uL (0.0-0.7); #Monocytes 0.83 10x3/uL (0.11-0.59); #Neutrophils 11.29 10x3/uL (1.40-6.50); %Basophils 0.6 % (0.0-1.0); %Eosinophils 2.0 % (0.0-10.0); %Lymphocytes 8.9 % (21.0-51.0); %Monocytes 6.0 % (0.0-10.0); %Neutrophils 82.1 % (42.0-75.0); Hematocrit 42.0 % (42.0-52.0); Hemoglobin 12.8 g/dL (14.0-18.0); Mean Corpuscular Hemoglobin 26.4 pg (27.0-31.0); Mean Corpuscular Volume 86.6 fL (78.0-98.0); Platelet Count 412 10x3/uL (130-400); Red Blood Cell (RBC) Count 4.85 mill/uL (4.70-6.10); White Blood Cell (WBC) Count 13.77 10x3/uL (4.8-10.8)
[2025-06-11] MEDS ORDERED: Iopamidol-370 76% 500 ML MDV (1 ML CHARGE) ONE (11:58)
[2025-06-11 12:04] LABS: INR-International Normal Ratio 1.4; Prothrombin Time 16.8 sec (12.0-14.7)
[2025-06-11 12:05] LABS: PTT 49.7 sec (22.9-36.1)
[2025-06-11 12:10] LABS: ALT (SGPT) 7 U/L (Less than 45); AST (SGOT) 26 U/L (11-34); Albumin 3.3 g/dL (3.1-4.5); Alkaline Phosphatase 74 U/L (40-110); Anion Gap 15 mmol/L (10-20); BUN (Urea Nitrogen) 18 mg/dL (8.4-25.7); Bilirubin, Total 0.7 mg/dL (0.3-1.2); Calc. Creatinine Clearance 0 mL/min (70-130); Calcium 9.7 mg/dL (7.8-10.44); Carbon Dioxide 23 mmol/L (23-31); Chloride 104 mmol/L (98-107); Globulin 4.5 g/dL (2.4-3.5); Glucose 122 mg/dL (83-110); Potassium 3.8 mmol/L (3.5-5.1); Sodium 138 mmol/L (136-145)
[2025-06-11] MEDS ORDERED: Guaifenesin DM 100-10/5 ML UDCUP PO PRN (13:52)
[2025-06-11] MEDS ORDERED: Calcium Carbonate 500 MG ChewTAB PO PRN (13:52)
[2025-06-11] MEDS ORDERED: Acetaminophen/Codeine 30-300mg Tablet PO PRN (13:52)
[2025-06-11] MEDS ORDERED: Ondansetron PF 4 MG/2 ML Vial IVP PRN (13:52)
[2025-06-11] MEDS ORDERED: Apixaban 5 MG TAB PO SCH (13:57)
[2025-06-11 14:00] LABS: Glucose, Urine (Dipstick) Negative (Negative); Leukocyte Moderate (Negative); Protein, Urine (Dipstick) 100 mg/dL (Neg-Trace); Specific Gravity, Urine Less/Equal 1.005 (1.005-1.030)
[2025-06-11 14:15] LABS: RBC/HPF 0-3 HPF (0-3)
[2025-06-11 14:16] LABS: Bacteria/HPF 1+ HPF (None Seen); WBC/HPF Greater than 50 HPF (0-3)
[2025-06-11] MEDS ORDERED: Vancomycin 1 GM/200 ML (PREMIX FOIL) BAG ONE (14:39)
[2025-06-11 16:15] VITALS: BMI 26.6
[2025-06-11] MEDS: Enoxaparin 100 MG (1 mL) SYRINGE SC SCH (16:42)
[2025-06-11 17:38] LABS: Glucose, Urine (Dipstick) Negative (Negative); Leukocyte Moderate (Negative); Protein, Urine (Dipstick) 100 mg/dL (Neg-Trace); Specific Gravity, Urine 1.010 (1.005-1.030)
[2025-06-11 17:46] LABS: Bacteria/HPF 1+ HPF (None Seen); CAUTI Indications for Culture < 2yrs of age; WBC/HPF Greater than 50 HPF (0-3)
[2025-06-11 17:47] LABS: Urine Culture Reflex Yes Yes
[2025-06-11 18:14] LABS: Legionella Urinary Ag Negative (Negative); Strep pneumo Urine Ag NEGATIVE (NEGATIVE)
[2025-06-11] MEDS: Vancomycin 1 GM in Premix 1 BAG IVPB SCH ×2 (18:14)
[2025-06-11 18:22] LABS: Influenza A by NAA Not Detected (NotDetected); Influenza B by NAA Not Detected (NotDetected); RSV by NAA Not Detected (NotDetected); SARS-CoV-2 NAA Rapid Test Not Detected (NotDetected)
[2025-06-12] MEDS: Melatonin 3 MG TAB PO PRN (00:27)
[2025-06-12 05:15] LABS: #Basophils 0.04 10x3/uL (0.0-0.2); #Eosinophils 0.37 10x3/uL (0.0-0.7); #Monocytes 0.71 10x3/uL (0.11-0.59); #Neutrophils 6.28 10x3/uL (1.40-6.50); %Basophils 0.5 % (0.0-1.0); %Eosinophils 4.3 % (0.0-10.0); %Lymphocytes 13.3 % (21.0-51.0); %Monocytes 8.3 % (0.0-10.0); %Neutrophils 73.2 % (42.0-75.0); Hematocrit 31.8 % (42.0-52.0); Hemoglobin 10.0 g/dL (14.0-18.0); Mean Corpuscular Hemoglobin 27.2 pg (27.0-31.0); Mean Corpuscular Volume 86.6 fL (78.0-98.0); Platelet Count 305 10x3/uL (130-400); Red Blood Cell (RBC) Count 3.67 mill/uL (4.70-6.10); White Blood Cell (WBC) Count 8.57 10x3/uL (4.8-10.8)
[2025-06-12] MEDS: Metoprolol Tartrate 5 MG (5 mL) VIAL IVP SCH (05:17)
[2025-06-12] MEDS: Enoxaparin 100 MG (1 mL) SYRINGE SC SCH ×2 (05:29→20:05)
[2025-06-12 05:33] LABS: Vancomycin, Random 19.1 ug/mL (See Comment)
[2025-06-12 05:39] LABS: ALT (SGPT) 7 U/L (Less than 45); AST (SGOT) 14 U/L (11-34); Albumin 2.3 g/dL (3.1-4.5); Alkaline Phosphatase 52 U/L (40-110); Anion Gap 11 mmol/L (10-20); BUN (Urea Nitrogen) 14 mg/dL (8.4-25.7); Bilirubin, Total 0.4 mg/dL (0.3-1.2); Calc. Creatinine Clearance 96 mL/min (70-130); Calcium 8.4 mg/dL (7.8-10.44); Carbon Dioxide 21 mmol/L (23-31); Chloride 108 mmol/L (98-107); Globulin 3.8 g/dL (2.4-3.5); Glucose 102 mg/dL (83-110); Potassium 3.4 mmol/L (3.5-5.1); Sodium 137 mmol/L (136-145)
[2025-06-12] MEDS: Digoxin 0.5 MG/2 ML AMP SLOW IVP SCH (06:05)
[2025-06-12 07:05] LABS: Magnesium 1.8 mg/dL (1.6-2.6)
[2025-06-12] MEDS: Amiodarone 150 MG, Admixture Fee 1 EACH in Dextrose 5% in Water 100 ML IVPB SCH (08:53)
[2025-06-12] MEDS: Magnesium 2 GM/50 ML(in water) 2 GM in Premix 1 BAG IVPB SCH (10:37)
[2025-06-12] MEDS: Vancomycin 1 GM in Premix 1 BAG IVPB SCH ×2 (13:24→20:06)
[2025-06-12 13:36] VITALS: BMI 26.6
[2025-06-12] MEDS: Rosuvastatin 10 MG TAB PO SCH (20:04)
[2025-06-13 04:45] LABS: Anion Gap 10 mmol/L (10-20); BUN (Urea Nitrogen) 11 mg/dL (8.4-25.7); Calc. Creatinine Clearance 100 mL/min (70-130); Calcium 8.7 mg/dL (7.8-10.44); Carbon Dioxide 22 mmol/L (23-31); Chloride 108 mmol/L (98-107); Glucose 105 mg/dL (83-110); Magnesium 2.0 mg/dL (1.6-2.6); Potassium 3.8 mmol/L (3.5-5.1); Sodium 136 mmol/L (136-145)
[2025-06-13 04:58] LABS: Free T4 (Free Thyroxine) 1.2 ng/dL (0.70-1.48)
[2025-06-13 05:51] LABS: #Basophils 0.05 10x3/uL (0.0-0.2); #Eosinophils 0.30 10x3/uL (0.0-0.7); #Monocytes 0.56 10x3/uL (0.11-0.59); #Neutrophils 6.03 10x3/uL (1.40-6.50); %Basophils 0.6 % (0.0-1.0); %Eosinophils 3.7 % (0.0-10.0); %Lymphocytes 13.3 % (21.0-51.0); %Monocytes 7.0 % (0.0-10.0); %Neutrophils 75.0 % (42.0-75.0); Hematocrit 33.0 % (42.0-52.0); Hemoglobin 10.1 g/dL (14.0-18.0); Mean Corpuscular Hemoglobin 26.9 pg (27.0-31.0); Mean Corpuscular Volume 88.0 fL (78.0-98.0); Platelet Count 304 10x3/uL (130-400); Red Blood Cell (RBC) Count 3.75 mill/uL (4.70-6.10); White Blood Cell (WBC) Count 8.04 10x3/uL (4.8-10.8)
[2025-06-13] MEDS: Acetaminophen 325 MG TAB PO PRN (06:48)
[2025-06-13] MEDS: Metoprolol Succinate XL 25 MG ER.TAB PO SCH (08:15)
[2025-06-13] MEDS: Magnesium 2 GM/50 ML(in water) 2 GM in Premix 1 BAG IVPB SCH (08:16)
[2025-06-13] MEDS: Furosemide 40 MG (4 mL) VIAL SLOW IVP SCH (15:43)
[2025-06-14 05:23] LABS: #Basophils 0.04 10x3/uL (0.0-0.2); #Eosinophils 0.38 10x3/uL (0.0-0.7); #Monocytes 0.60 10x3/uL (0.11-0.59); #Neutrophils 5.36 10x3/uL (1.40-6.50); %Basophils 0.5 % (0.0-1.0); %Eosinophils 5.1 % (0.0-10.0); %Lymphocytes 14.7 % (21.0-51.0); %Monocytes 8.0 % (0.0-10.0); %Neutrophils 71.4 % (42.0-75.0); Hematocrit 35.1 % (42.0-52.0); Hemoglobin 10.7 g/dL (14.0-18.0); Mean Corpuscular Hemoglobin 27.0 pg (27.0-31.0); Mean Corpuscular Volume 88.6 fL (78.0-98.0); Platelet Count 309 10x3/uL (130-400); Red Blood Cell (RBC) Count 3.96 mill/uL (4.70-6.10); White Blood Cell (WBC) Count 7.50 10x3/uL (4.8-10.8)
[2025-06-14 05:45] LABS: Vancomycin, Random 17.5 ug/mL (See Comment)
[2025-06-14 05:50] LABS: Anion Gap 13 mmol/L (10-20); BUN (Urea Nitrogen) 16 mg/dL (8.4-25.7); Calc. Creatinine Clearance 109 mL/min (70-130); Calcium 8.9 mg/dL (7.8-10.44); Carbon Dioxide 20 mmol/L (23-31); Chloride 106 mmol/L (98-107); Glucose 102 mg/dL (83-110); Magnesium 2.0 mg/dL (1.6-2.6); Potassium 3.7 mmol/L (3.5-5.1); Sodium 135 mmol/L (136-145)
[2025-06-14] MEDS: Magnesium 2 GM/50 ML(in water) 2 GM in Premix 1 BAG IVPB SCH (08:47)
[2025-06-14] MEDS: Furosemide 40 MG (4 mL) VIAL SLOW IVP SCH (14:40)
[2025-06-15 04:08] LABS: #Basophils 0.04 10x3/uL (0.0-0.2); #Eosinophils 0.40 10x3/uL (0.0-0.7); #Monocytes 0.65 10x3/uL (0.11-0.59); #Neutrophils 6.04 10x3/uL (1.40-6.50); %Basophils 0.5 % (0.0-1.0); %Eosinophils 4.9 % (0.0-10.0); %Lymphocytes 12.1 % (21.0-51.0); %Monocytes 8.0 % (0.0-10.0); %Neutrophils 74.1 % (42.0-75.0); Hematocrit 33.6 % (42.0-52.0); Hemoglobin 10.3 g/dL (14.0-18.0); Mean Corpuscular Hemoglobin 26.3 pg (27.0-31.0); Mean Corpuscular Volume 85.7 fL (78.0-98.0); Platelet Count 334 10x3/uL (130-400); Red Blood Cell (RBC) Count 3.92 mill/uL (4.70-6.10); White Blood Cell (WBC) Count 8.15 10x3/uL (4.8-10.8)
[2025-06-15 04:34] LABS: Anion Gap 14 mmol/L (10-20); BUN (Urea Nitrogen) 14 mg/dL (8.4-25.7); Calc. Creatinine Clearance 104 mL/min (70-130); Calcium 8.7 mg/dL (7.8-10.44); Carbon Dioxide 22 mmol/L (23-31); Chloride 104 mmol/L (98-107); Glucose 105 mg/dL (83-110); Potassium 3.8 mmol/L (3.5-5.1); Sodium 136 mmol/L (136-145)
[2025-06-15] MEDS: Furosemide 40 MG (4 mL) VIAL SLOW IVP SCH (14:54)
[2025-06-16 04:22] LABS: #Basophils 0.06 10x3/uL (0.0-0.2); #Eosinophils 0.45 10x3/uL (0.0-0.7); #Monocytes 0.67 10x3/uL (0.11-0.59); #Neutrophils 6.04 10x3/uL (1.40-6.50); %Basophils 0.7 % (0.0-1.0); %Eosinophils 5.5 % (0.0-10.0); %Lymphocytes 11.9 % (21.0-51.0); %Monocytes 8.1 % (0.0-10.0); %Neutrophils 73.3 % (42.0-75.0); Hematocrit 34.9 % (42.0-52.0); Hemoglobin 10.7 g/dL (14.0-18.0); Mean Corpuscular Hemoglobin 27.0 pg (27.0-31.0); Mean Corpuscular Volume 87.9 fL (78.0-98.0); Platelet Count 327 10x3/uL (130-400); Red Blood Cell (RBC) Count 3.97 mill/uL (4.70-6.10); White Blood Cell (WBC) Count 8.24 10x3/uL (4.8-10.8)
[2025-06-16 04:41] LABS: Vancomycin, Random 24.0 ug/mL (See Comment)
[2025-06-16 04:49] LABS: Anion Gap 12 mmol/L (10-20); BUN (Urea Nitrogen) 18 mg/dL (8.4-25.7); Calc. Creatinine Clearance 84 mL/min (70-130); Calcium 8.8 mg/dL (7.8-10.44); Carbon Dioxide 22 mmol/L (23-31); Chloride 102 mmol/L (98-107); Glucose 153 mg/dL (83-110); Potassium 3.4 mmol/L (3.5-5.1); Sodium 133 mmol/L (136-145)
[2025-06-16] MEDS: Amiodarone 200 MG TAB PO SCH (09:56)
[2025-06-16] MEDS: Metoprolol Tartrate 5 MG (5 mL) VIAL IVP PRN (18:07)
[2025-06-16] MEDS ORDERED: Vancomycin HCl 750 MG in Sodium Chloride 0.9% 250 ML 250 ML IVPB SCH (21:00)
[2025-06-17 04:57] LABS: #Basophils 0.06 10x3/uL (0.0-0.2); #Eosinophils 0.38 10x3/uL (0.0-0.7); #Monocytes 0.59 10x3/uL (0.11-0.59); #Neutrophils 5.62 10x3/uL (1.40-6.50); %Basophils 0.8 % (0.0-1.0); %Eosinophils 4.9 % (0.0-10.0); %Lymphocytes 13.7 % (21.0-51.0); %Monocytes 7.6 % (0.0-10.0); %Neutrophils 72.5 % (42.0-75.0); Hematocrit 33.0 % (42.0-52.0); Hemoglobin 10.1 g/dL (14.0-18.0); Mean Corpuscular Hemoglobin 26.8 pg (27.0-31.0); Mean Corpuscular Volume 87.5 fL (78.0-98.0); Platelet Count 347 10x3/uL (130-400); Red Blood Cell (RBC) Count 3.77 mill/uL (4.70-6.10); White Blood Cell (WBC) Count 7.75 10x3/uL (4.8-10.8)
[2025-06-17 05:11] LABS: Anion Gap 18 mmol/L (10-20); BUN (Urea Nitrogen) 21 mg/dL (8.4-25.7); Calc. Creatinine Clearance 87 mL/min (70-130); Calcium 8.9 mg/dL (7.8-10.44); Carbon Dioxide 22 mmol/L (23-31); Chloride 101 mmol/L (98-107); Glucose 124 mg/dL (83-110); Potassium 3.7 mmol/L (3.5-5.1); Sodium 137 mmol/L (136-145)
[2025-06-17 06:53] LABS: Vancomycin, Random 11.3 ug/mL (See Comment)
[2025-06-17] MEDS: Senokot S 8.6-50 MG TAB PO PRN (08:15)
[2025-06-18 04:50] LABS: #Basophils 0.05 10x3/uL (0.0-0.2); #Eosinophils 0.42 10x3/uL (0.0-0.7); #Monocytes 0.60 10x3/uL (0.11-0.59); #Neutrophils 6.39 10x3/uL (1.40-6.50); %Basophils 0.6 % (0.0-1.0); %Eosinophils 4.9 % (0.0-10.0); %Lymphocytes 13.1 % (21.0-51.0); %Monocytes 6.9 % (0.0-10.0); %Neutrophils 73.8 % (42.0-75.0); Hematocrit 32.5 % (42.0-52.0); Hemoglobin 9.9 g/dL (14.0-18.0); Mean Corpuscular Hemoglobin 26.5 pg (27.0-31.0); Mean Corpuscular Volume 86.9 fL (78.0-98.0); Platelet Count 360 10x3/uL (130-400); Red Blood Cell (RBC) Count 3.74 mill/uL (4.70-6.10); White Blood Cell (WBC) Count 8.65 10x3/uL (4.8-10.8)
[2025-06-18 05:02] LABS: Anion Gap 13 mmol/L (10-20); BUN (Urea Nitrogen) 20 mg/dL (8.4-25.7); Calc. Creatinine Clearance 95 mL/min (70-130); Calcium 9.0 mg/dL (7.8-10.44); Carbon Dioxide 22 mmol/L (23-31); Chloride 104 mmol/L (98-107); Glucose 109 mg/dL (83-110); Potassium 3.6 mmol/L (3.5-5.1); Sodium 135 mmol/L (136-145)
[2025-06-18 12:50] VITALS: BP 123/75; TEMP 97.2
== END 2025-06-18 14:38 | disposition home health service (06) | DRG 314 ==
LOC: ERS 10:52 → MSONC 13:22 → 2NO 06-12 08:25
PROVIDERS: ADMIT Internal Medicine; ATTEND Internal Medicine
PROC: 3E03329 Introduction of Other Anti-infective into Peripheral Vein, Percutaneous Approach (ICD-10-PCS; 2025-06-11)
PROC: 3E04329 Introduction of Other Anti-infective into Central Vein, Percutaneous Approach (ICD-10-PCS; 2025-06-11)
PROC: 05PY33Z Removal of Infusion Device from Upper Vein, Percutaneous Approach (ICD-10-PCS; 2025-06-12)
PROC: 0T9B70Z Drainage of Bladder with Drainage Device, Via Natural or Artificial Opening (ICD-10-PCS; 2025-06-12)
PROC: 0JPT0WZ Removal of Totally Implantable Vascular Access Device from Trunk Subcutaneous Tissue and Fascia, Open Approach (ICD-10-PCS; principal; 2025-06-16)
DX: T82.868A Thrombosis due to vascular prosthetic devices, implants and grafts, initial encounter (principal); A41.9 Sepsis, unspecified organism; G93.41 Metabolic encephalopathy; J96.21 Acute and chronic respiratory failure with hypoxia; N13.6 Pyonephrosis; I13.0 Hypertensive heart and chronic kidney disease with heart failure and stage 1 through stage 4 chronic kidney disease, or unspecified chronic kidney disease; I50.32 Chronic diastolic (congestive) heart failure; J98.11 Atelectasis; I31.39 Other pericardial effusion (noninflammatory); C79.51 Secondary malignant neoplasm of bone; T83.510A Infection and inflammatory reaction due to cystostomy catheter, initial encounter; N30.40 Irradiation cystitis without hematuria; C61 Malignant neoplasm of prostate; N18.9 Chronic kidney disease, unspecified; F10.90 Alcohol use, unspecified, uncomplicated; I48.0 Paroxysmal atrial fibrillation; E03.9 Hypothyroidism, unspecified; E87.6 Hypokalemia; N32.89 Other specified disorders of bladder; Z87.442 Personal history of urinary calculi; Z98.890 Other specified postprocedural states; Z90.49 Acquired absence of other specified parts of digestive tract; Z87.891 Personal history of nicotine dependence; Z79.899 Other long term (current) drug therapy; N32.0 Bladder-neck obstruction; N41.9 Inflammatory disease of prostate, unspecified; Y84.6 Urinary catheterization as the cause of abnormal reaction of the patient, or of later complication, without mention of misadventure at the time of the procedure; Y83.1 Surgical operation with implant of artificial internal device as the cause of abnormal reaction of the patient, or of later complication, without mention of misadventure at the time of the procedure
CPT/HCPCS: 36415; 71045; 71275; 76770; 80048; 80053; 80202; 81001; 83605; 83735; 83880; 84439; 84443; 84481; 84484; 85025; 85610; 85730; 86141; 87040; 87077; 87081; 87086; 87149; 87449; 87637; 87899; 93005; 93306; 94760; 96365; 96367; J0282; J1160; J1650; J1940; J2543; J3372; J3373; J3475; J7050; J7070; J7120; Q9967

== ENCOUNTER 2025-08-15 15:11 | Outpatient (CLI) | payer MEDICARE | END 2025-08-15 15:12 | disposition home or self-care (01) | LOC: ULT 15:11 | PROVIDERS: ATTEND Urology | DX: N13.30 Unspecified hydronephrosis (principal); Z46.82 Encounter for fitting and adjustment of non-vascular catheter | CPT/HCPCS: 76770 ==